=== PATIENT | female | born 1965 | race Caucasian/White ===

== ENCOUNTER → 2023-02-12 | Outpatient (CLI) | payer BC, SELFPAY ==
[2023-02-12 10:51] LABS: Microalbumin,Random Urine 7.8 mg/L (NO RANGE EST.)
[2023-02-12 10:55] LABS: Vitamin B12 808 pg/mL (211-911); Vitamin D,25 Hydroxy 24.3 ng/mL
[2023-02-12 11:08] LABS: PTHIN 1128.2 pg/mL (18.4-80.1)
[2023-02-12 11:20] LABS: T4 Free Direct 0.95 ng/dL (0.76-1.46); Thyroid Stim Hormone (TSH) 1.14 uIU/mL (0.358-3.74)
== END | disposition home or self-care (01) ==
LOC: MFPLAB 08:39
PROVIDERS: PCP Family Medicine; Visit Provider Family Medicine
DX: E83.52 Hypercalcemia (principal); F32.9 Major depressive disorder, single episode, unspecified; I10 Essential (primary) hypertension
CPT/HCPCS: 36415; 82043; 82306; 82570; 82607; 82746; 83970; 84439; 84443

== ENCOUNTER → 2023-02-18 | Outpatient (CLI) | payer BC, SELFPAY ==
--- NOTE | 2023-02-18 16:51 | US_ITS ---
STUDY: THYROID ULTRASOUND REASON FOR EXAM: Female, 57 years old. Elevated calcium and L anterior neck 1.5 cm mass above thyroid ti TECHNIQUE: Ultrasound evaluation of the thyroid was performed with real-time and static ye-scale imaging. COMPARISON: None. FINDINGS: RIGHT LOBE: The right lobe of the thyroid gland measures 4.8 x 2.0 x 2.0 cm. There is a homogeneous echotexture. There is a 4 x 4 by 4 mm small hypoechoic well-circumscribed structure. There is a small midline hypoechoic nodule measuring 4.3 x 2.5 mm. LEFT LOBE: The left lobe of the thyroid gland measures 5.2 x 1.9 x 1.5 cm. There is a homogeneous echotexture. There is a hypoechoic 5 x 4 x 3 mm cystic structure left ISTHMUS: The isthmus measures 1.6 mm . The regional lymph nodes are normal. The left neck soft tissues there is a 0.5 x 0.6 cm lymph node. There is a 1.1 x 0.3 cm lymph node. US/Thyroid IMPRESSION: Small benign-appearing small nodules following into a category of mildly suspicious. tI-RADS TR 3, recommend follow-up study in one year. Small benign-appearing Neck Soft Tissue lymph nodes. Mild thyromegaly. Electronically Signed: Jessica Robles MD at 5:11 EDT ,
== END | disposition home or self-care (01) ==
PROVIDERS: PCP Family Medicine; Referring Provider Family Medicine; Visit Provider Family Medicine
DX: R22.1 Localized swelling, mass and lump, neck (principal)
CPT/HCPCS: 76536

== ENCOUNTER → 2023-03-05 | Outpatient (CLI) | payer BC, SELFPAY ==
[2023-03-05 16:04] LABS: Vitamin D,25 Hydroxy 23.3 ng/mL
[2023-03-05 16:26] LABS: Calcium,Total 14.7 mg/dL (8.5-10.1)
== END | disposition home or self-care (01) ==
PROVIDERS: PCP Family Medicine; Referring Provider Surgery; Visit Provider Surgery
DX: R79.89 Other specified abnormal findings of blood chemistry (principal)
CPT/HCPCS: 36415; 82306; 82310; 83970

== ENCOUNTER 2023-03-07 11:30 | Outpatient (CLI) | payer BC, SELFPAY ==
[2023-03-07 11:40] VITALS: BP 141/84; PULSE 77; RESP 16; TEMP 36.6; O2SAT 96; BMI 30.4
[2023-03-07] MEDS: 0.9% NaCl Peripheral Flush Adult/Peds IV (12:06)
[2023-03-07] MEDS: 0.9% NaCl IVPB Med Flush (250 mL) 15 ML IV (12:06)
[2023-03-07] MEDS: Pamidronate Disodium 60 MG in 0.9% Normal Saline (500mL Bag) 500 ML 250 MG IV (12:07)
[2023-03-07 14:43] VITALS: BP 144/88; PULSE 66
== END 2023-03-07 11:31 | disposition home or self-care (01) ==
LOC: MEDOUTP 11:31
PROVIDERS: PCP Family Medicine; Referring Provider Internal Medicine Endocrinology, Diabetes & Metabolism; Visit Provider Internal Medicine Endocrinology, Diabetes & Metabolism
DX: E83.52 Hypercalcemia (principal)
CPT/HCPCS: 96365; 96366; J2430; J7040; J7050; A4216

== ENCOUNTER → 2023-03-13 | Outpatient (CLI) | payer BC, SELFPAY ==
[2023-03-13 18:10] LABS: ALB/GLOB Ratio 1.1 RATIO (0.9-2.4); AST(SGOT) 12 U/L (15-37); Alanine Aminotransfer ALT/SGPT 33 U/L (13-56); Alkaline Phosphatase 230 U/L (45-117); Anion Gap 4 (5-15); BUN 7 mg/dL (7-18); Calcium,Total 12.2 mg/dL (8.5-10.1); Chloride 110 mmol/L (98-107); EST Glomerular Filtration Rate 92 mL/min (>60); Est Glom Filt Rate - Afr Amer 111 mL/min (>60); Globulin 3.6 g/dL (2.2-4.2); Glucose 92 mg/dL (74-106); Potassium 3.7 mmol/L (3.5-5.1); Protein, Total 7.6 g/dL (6.4-8.2); Sodium Level 138 mmol/L (136-145)
== END | disposition home or self-care (01) ==
LOC: MTLAB 16:16
PROVIDERS: PCP Family Medicine; Referring Provider Internal Medicine Endocrinology, Diabetes & Metabolism; Visit Provider Internal Medicine Endocrinology, Diabetes & Metabolism
DX: E83.52 Hypercalcemia (principal); R79.89 Other specified abnormal findings of blood chemistry
CPT/HCPCS: 36415; 80053

== ENCOUNTER → 2023-03-26 | Outpatient (CLI) | payer BC, SELFPAY ==
--- NOTE | 2023-03-26 09:56 | NM_ITS ---
CLINICAL: 57-year-old female with history of elevation of the serum parathyroid hormone levels and hypercalcemia. 99m Tc SESTAMIBI DUAL PHASE PLANAR and SPECT-CT PARATHYROID SCINTIGRAPHY COMPARISON: Thyroid ultrasound report 02/18/2023 FINDINGS: Following the intravenous administration of 27.0 mCi of 99m Tc sestamibi, planar image acquisitions of the anterior neck at 15 minutes and 3.0 hours post radiopharmaceutical provision and SPECT-CT reconstructions obtained at 3.0 hours reveal: 1. Immediate static blood pool acquisitions demonstrate distribution of the radiopharmaceutical in the right-left thyroid colloid, most accentuated in the mid-inferior pole of the right thyroid parenchyma. 2. Delayed planar images depict persistent accentuated tracer uptake noted in the mid-inferior pole of the right thyroid bed corresponding to the blood pool changes. SPECT-CT of the anterior neck reveal confirmation of the planar projection findings. NM/Parathyroid SPECT w/ CONCUR CT IMPRESSION: 1. ABNORMAL 99m Tc SESTAMIBI PLANAR - SPECT PARATHYROID IMAGING DUAL PHASE EXAMINATION. 2. Facilitated uptake noted on delayed acquisitions and SPECT-CT reconstructions involving the right thyroid bed are most consistent with visualization of a parathyroid adenoma. Electronically Signed: Sy Vidal DO at 23:27 EDT ,
== END | disposition home or self-care (01) ==
LOC: NM 09:54
PROVIDERS: PCP Family Medicine; Referring Provider Surgery; Visit Provider Surgery
DX: E83.52 Hypercalcemia (principal); R79.89 Other specified abnormal findings of blood chemistry
CPT/HCPCS: 78072; A9500

== ENCOUNTER → 2023-03-28 | Outpatient (CLI) | payer BC, SELFPAY ==
--- NOTE | 2023-03-28 16:33 | US_ITS ---
EXAM: US RETROPERITONEAL LIMITED, RENAL CLINICAL INDICATION: elevated calcium and PTH TECHNIQUE: Limited grayscale and color Doppler sonographic evaluation of the retroperitoneum was performed. COMPARISON: No relevant prior studies available. FINDINGS: RIGHT KIDNEY: The right kidney measures 11.7 cm in length. There are multiple calyceal stones, the largest measuring 6 mm. There is mild hydronephrosis. LEFT KIDNEY: The left kidney measures 13 cm in length. There are multiple stones, the largest measuring 8 mm and there is mild hydronephrosis. No perinephric collection is demonstrated. BLADDER: Urinary bladder appears within normal limits. No significant urinary bladder wall thickening. Bilateral ureteral jets are visualized. US/Kidney and Bladder IMPRESSION: Bilateral nephrolithiasis and mild bilateral hydronephrosis. Consider CT for further evaluation. Electronically Signed: Angelo Mejia DO at 23:51 EDT ,
--- NOTE | 2023-03-28 16:36 | CT_ITS ---
INDICATION: elevated PTH -- hypercalcemia, 3-phase parathyroid protocol EXAMINATION: CT NECK WITH CONTRAST - CT Soft Tissue Neck W/ Contrast Injection TECHNIQUE: Helically acquired images were obtained of the neck following IV contrast. A radiation dose optimization technique was used for this scan. IV Contrast dosage and agent: RADIATION DOSAGE (If Supplied By Facility): CTDIvol = ( 7.97 ) mGy, DLP = ( 855.22 ) mGycm COMPARISON: Parathyroid SPECT with FINDINGS: NASOPHARYNX: Unremarkable. SUPRAHYOID NECK: Unremarkable oropharynx, oral cavity, parapharyngeal space, and retropharyngeal space. INFRAHYOID NECK: Unremarkable larynx, hypopharynx, and supraglottis. THYROID: No focal lesions. Parathyroid adenoma was evident on prior parathyroid study. The thyroid gland itself is normal in appearance. Posterior to the lower pole of the right lobe of the thyroid gland there is a nodule visualized measuring 1.5 cm transverse by 1.37 cm AP. This is seen on series 4 images 85 through 97. This likely represents the patient''s parathyroid adenoma. SALIVARY GLANDS: Unremarkable. LYMPH NODES: No cervical or supraclavicular lymphadenopathy. VASCULAR STRUCTURES: Unremarkable. VISUALIZED PORTIONS OF THE ORBITS, PARANASAL SINUSES, MASTOID AIR CELLS AND SKULL BASE: Unremarkable. BONES: Unremarkable. THORACIC INLET: Clear lung apices. CT/Soft Tissue Neck W/WO Contrast IMPRESSION: Nodule posterior to right lobe of thyroid gland 0.5 x 1.37 cm likely representing parathyroid adenoma. Electronically Signed: Hank Choi MD at 14:08 EDT ,
== END | disposition home or self-care (01) ==
LOC: US 16:32
PROVIDERS: PCP Family Medicine; Referring Provider Surgery; Visit Provider Surgery
DX: E83.52 Hypercalcemia (principal); R79.89 Other specified abnormal findings of blood chemistry
CPT/HCPCS: 70492; 76770; Q9967

== ENCOUNTER → 2023-04-22 | Outpatient (CLI) | payer BC, SELFPAY ==
--- NOTE | 2023-04-22 14:09 | BD_ITS ---
STUDY: DUAL ENERGY X-RAY ABSORPTIOMETRY / DXA REASON FOR EXAM: Female, 57 years old. Hypercalcemia -- please include bilateral radius if possible TECHNIQUE: Bone Mineral Density (BMD) measurements of lumbar spine and bilateral hips were obtained. COMPARISON: None. FINDINGS: Lumbar Spine (L1-L4): g/cm2 (0.817) / T-score (-1.8) / Z-score (-0.7) Findings are suggestive of osteopenia with a moderate fracture risk. Left Femur Total: g/cm2 (0.927) / T-score (-0.1) / Z-score (0.6) Left Femoral Neck: g/cm2 (0.761) / T-score (-0.8) / Z-score (0.3) Right Femur Total: g/cm2 (0.988) / T-score (0.4) / Z-score (1.1) Right Femoral Neck: g/cm2 (0.801) / T-score (-0.4) / Z-score (0.7) BD/Dexa Bone Density Study IMPRESSION: The patient is considered osteopenic as outlined below according to World Greg Organization (WHO) criteria with a moderate fracture risk. Reference Information: The T-score is the number of standard deviations above or below the standard which is normal for young adults at their peak bone mineral density. The World Health Organization (WHO) interprets the T-scores as follows: Above -1 Normal bone density Between -1 and -2.5 Osteopenia Equal to / or below -2.5 Osteoporosis As a practical clinical guideline, osteopenia may be graded as follows: Mild -1 through -1.5 Moderate -1.6 through -2.0 Severe -2.1 through -2.4 The Z-score is the number of standard deviations above or below age-matched controls. A Z-score of less than -1.5 would be considered abnormal. References: 1. NIH Osteoporosis and Related Bone Diseases www osteo.org 2. International Society for Clinical Densitometry www iscd.org 3. National Osteoporosis Foundation www nof.org Electronically Signed: Blu Woody MD at 13:51 EST ,
== END | disposition home or self-care (01) ==
LOC: OPBD 14:03
PROVIDERS: PCP Family Medicine; Referring Provider Surgery; Visit Provider Surgery
DX: E83.52 Hypercalcemia (principal); R79.89 Other specified abnormal findings of blood chemistry
CPT/HCPCS: 77080

== ENCOUNTER → 2023-05-06 | Outpatient (CLI) | payer BC, SELFPAY ==
--- NOTE | 2023-05-06 14:17 | CT_ITS ---
HISTORY: nephrolithiasis. TECHNIQUE: Helically acquired images were obtained of the abdomen and pelvis without oral or IV contrast. A radiation dose optimization technique was used for this scan. 529 images. COMPARISON: US 03/28/2023. FINDINGS: LOWER CHEST: 3 mm right lower lobe groundglass pulmonary nodule. BOWEL: Bowel including appendix nondilated. No focal pericolonic inflammatory change. PERITONEUM: No significant free fluid. LIVER: Unremarkable. GALLBLADDER/BILIARY TREE: 1.6 cm gallstone with a peripheral calcification. SPLEEN/PANCREAS/ADRENAL GLANDS: Nonenlarged. KIDNEYS AND URETERS: No nephrolithiasis or obstructing ureteral calculus. VESSELS: No abdominal aortic aneurysm. PELVIC ORGANS: Unremarkable. ABDOMINAL WALL: Tiny fat-containing umbilical hernia. BONES: Mild degenerative change and scoliosis. CT/Abdomen/Pelvis without Cont IMPRESSION: Cholelithiasis. Negative examination for renal stone. Electronically Signed: Shanta Gómez MD at 15:03 EST ,
== END | disposition home or self-care (01) ==
LOC: CT 14:17
PROVIDERS: PCP Family Medicine; Referring Provider Surgery; Visit Provider Surgery
DX: N20.0 Calculus of kidney (principal)
CPT/HCPCS: 74176

== ENCOUNTER 2023-05-15 13:00 | Observation (INO) | payer BC, SELFPAY ==
[2023-05-15] VITALS (12 sets, daily range): BP systolic 120–153; BP diastolic 79–93; PULSE 85–113; RESP 16–18; TEMP 36.2–37.7; O2SAT 92–98; BMI 30.2; BMI 31.8
--- NOTE | 2023-05-15 | PARA_PTH ---
PATIENT: ANAYA VAZQUEZ LOC: NC3 U#:[id number] AGE/SX: 57/F ROOM: [facility] [place]05/15/[address]: Dr. John Richardson MD : 1965 BED: 1 DIS: 05/16/2023 SPEC #: [id number] RECD: 05/15/23 08:37 STATUS: DICK REMalvin #: [id number] LUC: 05/15/23 00:[address]: John Richardson DEPT: SURGICAL PATHOLOGY RECD BY: Nichole Lay ENTERED: 05/15/23 09:30 SP TYPE: PARATHY OTHR DR: Dr. Pierce Brewer MD Tissues: A - Parathyroid B - Parathyroid C - Thyroid gland, NOS D - Parathyroid E - Parathyroid F - Neck, NOS G - Parathyroid H - Parathyroid Procedures: Frozen Section (charge) Surgery Specimen Level IV HEADER OPERATION: Subtotal thyroidectomy with four parathyroid gland exploration PRE-OP DIAGNOSIS: Primary hyperparathyroidism TISSUE SUBMITTED: A - Parathyroid tissue, FS, B - Right superior parathyroid, FS, C - Thyroid tissue, FS, D - Left inferior parathyroid tissue, FS, E - Left perithyroidal tissue, FS, F - Right neck fat, FS, G - Right inferior parathyroid, FS, H - Left superior parathyroid tissue, FS FROZEN SECTION DIAGNOSIS A. Parathyroid tissue, biopsy: Parathyroid tissue present. B. Right superior parathyroid, excision: Hyperplastic parathyroid tissue. C. Thyroid tissue, biopsy: Parathyroid tissue. D. Left inferior parathyroid tissue, biopsy: Parathyroid tissue. E. Left perithyroidal tissue, biopsy: Benign lymphoid tissue. F. Right neck fat, biopsy: Benign fibrofatty tissue. G. Right inferior parathyroid, biopsy: Parathyroid tissue with hyperplasia. H. Left superior parathyroid tissue, biopsy: Hyperplastic parathyroid tissue. AM:angélica 05/15/2023 MICROSCOPIC DIAGNOSIS A. Parathyroid tissue, biopsy: Benign parathyroid tissue present. B. Right superior parathyroid, excision: Hyperplastic parathyroid gland. C. Thyroid tissue, biopsy: Benign parathyroid tissue present. D. Left inferior parathyroid tissue, biopsy: Benign parathyroid tissue. E. Left perithyroidal tissue, biopsy: Benign lymph node tissue. F. Right neck fat, biopsy: Benign fibrofatty tissue. G. Right inferior parathyroid, biopsy: Hyperplastic parathyroid tissue present. H. Left superior parathyroid tissue, biopsy: Hyperplastic parathyroid tissue present. AM:angélica 05/16/2023 COMMENT The right superior parathyroid gland measures 3.7 cm in greatest dimension and weighs to 2.8 gm. The right inferior parathyroid gland and the left superior parathyroid gland are above the upper limits for size. The overall findings in this case with hyperplasia of three parathyroid glands is consistent with primary hyperparathyroidism. Clinical correlation is suggested. MICROSCOPIC DESCRIPTION Slides are reviewed. GROSS DESCRIPTION A - Received fresh for frozen section consultation labeled with the patient's name is a specimen designated parathyroid tissue. The specimen consists of an irregular fragment of red-rivera soft tissue measuring 0.5 x 0.1 x 0.1 cm. The specimen is totally submitted in one block for frozen section consultation. B - Received fresh for frozen section consultation labeled with the patient's name is a specimen designated right superior parathyroid. The specimen consists of an irregular fragment of red-rivera soft tissue measuring 3.7 x 1.7 x 0.8 cm and weighs 2.8 gm. A fraud representative portion is submitted in one block for frozen section consultation. The remainder of the tissue is serially sectioned and totally submitted two cassettes, 2 & 3. C - Received fresh for frozen section consultation labeled with the patient's name is a specimen designated thyroid tissue. The specimen consists of an irregular fragment of red-rivera soft tissue measuring 0.5 x 0.2 x 0.2 cm. The specimen is totally submitted in one block for frozen section consultation. D - Received fresh for frozen section consultation labeled with the patient's name is a specimen designated left inferior parathyroid. The specimen consists of an irregular fragment of pink-rivera soft tissue measuring 0.5 x 0.1 x 0.1 cm. The specimen is totally submitted in one block for frozen section consultation. E - Received fresh for frozen section consultation labeled with the patient's name is a specimen designated left soft tissue. The specimen consists of an irregular fragment of yellow soft tissue measuring 0.8 x 0.5 x 0.2 cm. The specimen is totally submitted in one block for frozen section consultation. F - Received fresh for frozen section consultation labeled with the patient's name is a specimen designated right neck fat. The specimen consists of a single irregular fragment of yellow fatty tissue measuring 1.1 x 0.7 x 0.5 cm. The specimen is totally submitted in one block for frozen section consultation. G - Received fresh for frozen section consultation labeled with the patient's name is a specimen designated right inferior parathyroid. The specimen consists of an irregular fragment of red-rivera soft tissue measuring 1.2 x 0.5 x 0.2 cm and weighs 0.2 gm. The specimen is totally submitted in one block for frozen section consultation. H - Received fresh for frozen section consultation labeled with the patient's name is a specimen designated left superior parathyroid tissue. The specimen consists of an irregular fragment of red-rivera soft tissue measuring 1.2 x 0.8 x 0.3 cm and weighs 0.3 gm. The specimen is totally submitted in one block for frozen section consultation. / AM:angélica 05/15/2023 TC:1 CPT: 03980 x8, [id number] x8
[2023-05-15] MEDS: Lactated Ringers 1,000 ML 15 ML IV (06:45)
--- NOTE | 2023-05-15 07:02 | HP.PCM_ITS ---
History and Physical Date of Admission: 05/15/23 Date of Service: 04/22/23 MR#: [id number] Acct: [id number] Name: ANAYA VAZQUEZ Rep #: [id number] : 1965 Provider: Dr. 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 Is patient in pain?: Yes (generalized) Allergies amoxicillin Allergy (Severe, Verified 04/22/23 08:47) Swelling Medications Lactobacillus rhamnosus GG 10 billion cell capsule (Culturelle) 1 cap PO DAILY 03/05/23 [History Confirmed 04/22/23] cholecalciferol (vitamin D3) 25 mcg (1,000 unit) capsule 25 mcg PO DAILY 03/05/23 [History Confirmed 04/22/23] [id number] 8 mg-folic 400 mcg-K 50 mcg-lutein 300 mcg tablet (Centrum Silver Women) 1 tab PO DAILY 03/05/23 [History Confirmed 04/22/23] ramipril 2.5 mg capsule 2.5 mg PO DAILY 03/05/23 [History Confirmed 04/22/23] pamidronate 60 mg/10 mL (6 mg/mL) intravenous solution 60 mg (10 mL) .Route ONCE #10 mL 03/06/23 [Rx Confirmed 04/22/23] PFSH Medical History Elevated parathyroid hormone Family History Mother Heart disease Hypertension Thyroid disorder DiabetesGrandmother Thyroid disorderAunt Thyroid disorder Social History Smoking Status: Never smoker alcohol intake: current alcohol intake frequency: holidays/special occasions only substance use type: does not use HPI HPI HPI: Patient is a 57-year-old female who presents for evaluation of left neck swelling and hypercalcemia. They are referred from Dr. Brewer. She follows up from an initial consultation visit 03/05/2023. She reports that she has a habit of downplaying symptoms and believes she did this prior to our visitation as she is recognized more symptoms since our consultation visit. Particularly, she notes that October was difficult due to rather diffuse skeletal type pains and she specifically notes discomfort in her knees and finger joints. She shares that the pain became so bad in her knees that she almost fell and that her is now carrying a laundry basket for her. She also reports more tiredness and states that it is out of character for her to nap, but over the last weekend she had both a 3-hour and a 2-hour nap. She is frustrated because she wishes to have more energy for the many obligations that face her. She expresses a desire to simply have this issue dealt with definitively. In the interim since our last visit she has completed SPECT-CT on 03/26/2023, renal ultrasound on 03/28/[address] of the neck also on 03/28/2023. Below is recapitulated from patient's prior visit for ease of review: Patient has no history of prior bone density imaging admits that she rarely sees a physician. Patient has no history of pathologic fractures. Patient has no history of kidney stones. Patient has no history of frequent dental caries or chipped teeth. Patient has no history of brittle fingernails. Patient has a sporadic history of GERD which she states presently causes troubles for her but once a month. Patient does have a history of hypertension with recent exacerbation requiring addition of VELMA inhibitor. Additional symptoms include: Some occasional mind wandering, fatigue, chronic constipation, and sore joints of her hands. Pertinent negatives include no significant mood disturbances aside from some grieving after the loss of her brother and niece in a tragic car accident 2021. Additional pertinent negatives include no frequent dry cough, no swallowing difficulties, no shortness of breath, and no muscle weakness. Patient has no history of prior radiation exposure apart from medical imaging. Patient has a family history of other endocrinopathies including thyroid disorder not otherwise specified in her mother and maternal grandmother. She notes that her mother was very private about her health issues and was not discussed much while she was living. Patient does not have a diet high in dairy. Patient's current labs are calcium: 15.6 mg/dL 02/11/2023 (patient's last values were normal but were from the year 2013), Vitamin D: 24.3 ng/mL 02/11/2023, Ionized calcium: [Value]mg/dL [date], PTH: 1128.2 pg/mL 02/11/2023 (this is a single value, Phosphorus: [Value] [date] Current medications include: Vitamin D supplementation and prior multivitamin (now stopped) Imaging has been done thyroid ultrasound 02/18/2023 and showed no evidence of parathyroid adenomas but the right thyroid lobe measured 4.8 x 2.0 x 2.0 cm. Two 4 mm nodules were noted within this lobe. Left thyroid lobe measured 5.2 x 1.9 x 1.5 cm. A 5 mm nodule was noted within this lobe. Patient, as above, has not had DEXA imaging [on date] [which showed: Imaging fin dings]. Patient has not had renal imaging [on date] [which showed: Imaging findings]. ROS General General: No weight change, appetite, fatigue, colon cancer, breast cancer or weakness HEENT HEENT: No difficulty swallowing, eye injury, eye surgery, swollen glands or hoarseness Endo Endocrine: No thyroid disease, diabetes mellitus, thyroid cancer, Hair loss, heat intolerance or cold intolerance Skin Skin: No rash or changing moles Musc Musculoskeletal: No back problems, arthritis, rheumatoid arthritis, gout or joint pain Cardio Cardiovascular: Yes high blood pressure; No murmur, pacemaker, heart disease, atrial fibrillation, heart attack, heart stent, palpitations, shortness of breat with exertion or chest pain Psych Psychiatric: No depression, anxiety or hearing voices Resp Respiratory: No shortness of breath, No sleep apnea, No cough, No COPD, No asthma, No emphysema and No wheezing Gastro Gastrointestinal: No abdominal pain, No nausea or vomiting, No diarrhea, Yes constipation, No blood in stool, No acid reflux, No hemorrhoids, No ulcers, No gallbladder problem and No black,tarry stools Wilner Hematologic: No blood thinners, No blood disorders, No bleeding, No anemia and No blood clots Neuro Neurologic: No system reviewed and no additional complaints, except as documented, No as per HPI, No abnormal gait, No abnormal hearing, No abnormal movements, No abnormal speech, No behavioral changes, No burning sensations, No confusion, No convulsions, No disequilibrium, No dizziness, No localized weakness, No frequent falls, No headache(s), No lack of coordination, No loss of vision, No memory loss, Yes numbness, No other visual disturbances, No radicular pain, No restless legs, No sensory deficit, No syncope, Yes tingling, No tremor(s), No weakness and No other Exam Const General: cooperative and anxious Orientation: alert, awake and oriented x3 Neck Other: No lymphadenopathy appreciated. Nontender with palpation. Resp Effort & Inspection: normal respiratory effort Assessment and Plan Assessment and Plan (1) Primary hyperparathyroidism: Status: Acute Comment: This is a 57-year-old female who initially consulted for recent finding of hypercalcemia and elevated parathormone. She now appears to have primary hyperparathyroidism as confirmed with repeat lab testing. Given the severely elevated levels of both her calcium and parathyroid hormone I have counseled her that she is at risk for possible parathyroid carcinoma, but reminded her that the incidence of this diagnosis is very low in the general population (representing less than 1% of all primary hyperparathyroidism). Our interval since her consultation visit has been productive and she had a sestamibi scan with SPECT-CT that localized to the right inferior position. Renal ultrasound demonstrated bilateral nephrolithiasis and soft tissue CT of the neck confirms that the cyst may be with an apparent lesion in the right inferior neck. Notably, radiology does not comment on any invasion of the surrounding anatomy. Patient also does not have any evidence of lymphadenopathy on exam today. With these latter observations, it is my hope that she simply has a large and active parathyroid adenoma. Given her reports of increased symptoms and the lingering possibility of a carcinoma, it is my recommendation that we proceed for operative intervention at first mutually available date. Yet in the meantime, I would like to obtain baseline bone density testing. I have shared with patient the details of the planned operation to include parathyroidectomy, intraoperative nerve and PTH monitoring, and possible right thyroid lobectomy/en bloc resection of involved structures if there is concern for invasion. Hand drawings were made of the relevant anatomy to better illustrate these risks. Given the possibility of hungry bone syndrome, I would like patient to plan for an overnight observational stay following the operation. Plan: Parathyroidectomy with intraoperative nerve and PTH monitoring. Possible right thyroid lobectomy/en bloc resection of involved anatomy/ all other procedures as indicated. Procedure to be planned as a observational stay postoperatively (2) Hypercalcemia: Status: Acute Comment: Patient is a 57-year-old female who is presenting for incidentally noted hypercalcemia with reflex elevated PTH from recent routine lab testing. Laboratories confirmed with repeat testing. Patient has met with endocrinology and underwent pamidronate infusion. Patient requires surgical intervention for definitive management Plan: See surgical plans above (3) Thyroid nodule: Status: Acute Comment: No intervention recommended based on the subcentimeter nodules without suspicious features (4) Elevated parathyroid hormone: Status: Acute Comment: Severely elevated; confirmed with repeat laboratories. Given significant elevation this places patient at increased risk for parathyroid carcinoma but overall picture is consistent with diagnosis of primary hyperparathyroidism (5) Bilateral nephrolithiasis: Status: Acute Comment: Incidental finding for screening with primary hyperparathyroidism. Patient reports more central back pain and denies CVA tenderness with exam. I have offered to perform CT imaging to investigate further, however, it is her wish to deal with this issue postoperatively. Still, she is given red flag warnings that should prompt her to be evaluated in the emergency department should she experience them. Plan: Patient wishes to defer further imaging/referral for postoperatively. However, she is cautioned on signs and symptoms of acute obstructive nephrolithiasis/uropathy. Orders: Orders Dexa Bone Density Study Today E83.52 - Hypercalcemia, R79.89 - Other specified abnormal findings of blood chemistry I have examined the patient and the H&P has been reviewed. There are no clinical changes since date of exam. Results of interval testing were reviewed with p atient via telephone yesterday. She denies any further questions. Therefore the high-level details of the procedure were reviewed with patient today and again she denies any further questions. A baseline PTH has been obtained peripherally and submitted to the lab. Written consents were confirmed. We will therefore proceed to the operating room for parathyroidectomy with intraoperative nerve and PTH monitoring. Patient is also consented for possible right thyroid lobectomy up to including en bloc resection of all involved anatomy should there be a strong suspicion for malignancy. To this latter point we did discuss the possible morbidity of the procedure if such anatomy was sacrificed in the name of oncologic completeness and patient did provide her consent both verbally and in written form.
[2023-05-15 07:09] LABS: PTHIN 1147.1 pg/mL (18.4-80.1)
[2023-05-15 09:43] LABS: PTHIN 144.6 pg/mL (18.4-80.1)
[2023-05-15 09:49] LABS: PTHIN 144.9 pg/mL (18.4-80.1)
[2023-05-15 09:52] LABS: PTHIN 2533.9 pg/mL (18.4-80.1)
[2023-05-15 10:19] LABS: PTHIN 284.5 pg/mL (18.4-80.1)
[2023-05-15 11:05] LABS: PTHIN 126.6 pg/mL (18.4-80.1)
[2023-05-15 11:42] LABS: PTHIN 377.2 pg/mL (18.4-80.1)
[2023-05-15 12:22] LABS: PTHIN 43.2 pg/mL (18.4-80.1)
[2023-05-15] MEDS: Bupivacaine 0.25% 30 ML Vial (12:44)
[2023-05-15 12:58] LABS: PTHIN 118.4 pg/mL (18.4-80.1)
--- NOTE | 2023-05-15 13:03 | OP.PCM_ITS ---
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 Modestly enlarged right inferior parathyroid gland that was identified via frozen section ? Markedly enlarged right superior parathyroid gland found just deep to the trachea against the vertebrae but not invading any of the surrounding anatomy ? Modestly enlarged left superior and left inferior parathyroids (both confirmed and identity via frozen section) ? Pedicled lymph node in the perithyroidal space on the left which was confirmed via frozen section as lymphoid tissue ? Lobulated, subcutaneous tissue on the right just medial to the carotid confirmed as neither thyroid or parathyroid Surgeon: John Richardson non destructive testing engineer: Ricco Leon non destructive testing engineer: Mayi Swain Type of Anesthesia: General/Supplemental Anesthesiologist: Pierce Lynn Specimen's removed: 1. Rule out right inferior parathyroid (frozen section confirmed) 2. Right superior parathyroid (frozen section confirmed) 3. Soft tissue rule out superior parathyroid (frozen section confirmed) 4. Left inferior parathyroid tissue (frozen section confirmed 5. Left neck soft tissue (frozen section suggestive lymph tissue) 6. Right neck fat (frozen section confirms subcutaneous tissue) Estimated Blood Loss (mL): 10 Description of Procedure: After appropriate identification in the preoperative holding area the patient was brought to the operating room where she was positioned supine on the operating room table. There she was induced with general endotracheal anesthetic. Of note, a preoperative PTH had been obtained and was reported as 1147. Patient was then intubated using a Nims tube and glide a scope to ensure coaptation between the vocal cords and the Nims tube electrodes. A resistance check confirmed appropriate function of the tube after the electrodes were properly connected to the monitoring box. Patient was then positioned in cervical extension, but adequately supporting the occiput. She was prepped and draped in the usual sterile fashion and a formal timeout followed to confirm patient and the procedure to be performed. A local block was produced with infiltration of local anesthetic and a 4cm transverse incision was made. This was deepened with the use of electrocautery through the platysma and subplatysmal flaps were raised superiorly and inferiorly. Ultimately the strap muscles were exposed and were divided along their raphe with electrocautery. I then used blunt dissection to free the sternothyroid muscle from the thyroid capsule of the right thyroid lobe deeply. The strap muscles were from 1 another as I proceeded with dissection laterally towards the patient's right internal jugular vein. Once this structure was sufficiently exposed I obtained a baseline central vein PTH level. This ultimately returned at 4613. For the interim I returned to the patient's neck and elevated the inferior pole of the right thyroid lobe. Several areas of fullness in the soft tissue of the right thyrothymic ligament were explored but ultimately I only encountered a rather normally-appearing parathyroid in the inferior position. To confirm this identity a small biopsy was obtained and submitted for frozen section after placement of a titanium clip. Returning to the neck I was able to identify the right recurrent laryngeal nerve and obtain a signal from our NIMS monitor but there were no immediately apparent candidates for our preoperatively identified adenoma. On reviewing patient's CT imaging I decided our search had been a li ttle low for where the suspected lesion might be expected especially given the repositioning of patient with her head extended. Therefore, exploring higher in the neck I was able to identify a subtle soft tissue swelling that arose out of the soft tissue deep to the trachea. This area was further bluntly explored- taking the recurrent laryngeal nerve into account- and I was able to discern a very large gland lying parallel but deep to the tracheoesophageal groove. Careful/tedious blunt dissection was employed to free the structure from its surrounding soft tissue attachments it was then circumferentially freed so that it remains suspended by its vascular pole only. At this point the gland was amputated free. This specimen was passed off the field for frozen section confirmation. (Later, pathology telephoned the room to notify us that indeed this represented a large parathyroid). As we awaited this result, I irrigated the surgical cavity with sterile water examined for hemostasis. Right internal jugular ex vivo blood draws were made with a 22-gauge needle and syringe at 5, 10, and 15 minutes and returned 2533.9, 144.6, and 144.9. There was a delay in the reporting of these values and I became suspicious for additional pathology when they failed to drop further so an additional level was obtained and this returned 284.5 despite no significant dissection about the remaining parathyroid inferiorly. With this rise I began exploring the left side of the neck and obtained a baseline value, centrally, after exposing that internal jugular vein to ultimately get a value of 126.6. Exploration for parathyroid glands first revealed a fatty lymph node (later confirmed as such by frozen section) and two modestly-enlarged parathyroid glands in the superior and inferior positions (later confirmed with frozen section). Once all 4 glands were identified and I was able to exclude a case of double adenoma I tried to obtain another central PTH level suspecting possible delayed fall in PTH. Yet this value came back higher (377.2) than the previous values and seemed to suggest lateralization favoring the right side as the primary contributor to patient's persistently elevated PTH. With this result I returned to the right neck to assess for completeness of the resection of the initial gland and removed some bulbous but fatty tissue and submitted this for frozen section which was ultimately confirmed as fatty tissue by pathology. Satisfied with completeness of the resection of the right superior gland, I removed the right inferior parathyroid gland and, interestingly, heard from pathology that they were able to declare it represented a hyperplastic gland as well (weighing 200mg). On hearing this declaration I concluded that patient actually suffered from parathyroid hyperplasia because I had already grossly concluded that the left superior parathyroid was larger than the right inferior gland I'd just submitted. With this diagnosis, I proceeded with performing a subtotal parathyroidectomy and removed the left superior gland as well. While on that side of the dissection I also replaced our biopsy clip on the left inferior gland- which had become loose- and otherwise was conscientious about trying to avoid any devascularization to this remaining gland. Determined this represented the extent of my intervention, I obtained a new central PTH from the right IJ that returned 43.2. Then I performed closure of the neck in layers. The strap muscles were run with a 3-0 Vicryl suture to reapproximate the raphe, but a gap was left in the inferior most portion of the strap muscles. Then the platysmal layer was reapproximated with interrupted 3-0 Vicryl. Additional local anesthetic was instilled. The skin was closed using a running 4-0 Monocryl in a subcuticular fashion. During this closure I received additional notification from pathology that the third parathyroid gland was also hyperplastic in appearance and had a weight of 300 mg. Steri-Strips and Telfa OpSite was applied as a dressing. Patient was then awoken from general anesthetic and taken to PACU for ongoing recovery. Complications None Admit VTE Documentation VTE Mechan Device Prophylaxis: SCD's Procedures Endocrine CF Procedures [id number]: Other Procedure See Report (cpt [id number])
[2023-05-15 13:52] LABS: PTHIN 22.3 pg/mL (18.4-80.1)
[2023-05-15] MEDS: Calcium Carb/Vitamin D 1 TABLET Tablet 2 TABLET PO (17:04)
[2023-05-15] MEDS: 0.9% Normal Saline (1000mL) 1,000 ML 125 ML IV (21:12)
[2023-05-15] MEDS: BENZOCAINE/MENTHOL 1 LOZENGE MUCOUS MEM (21:17)
[2023-05-15] MEDS: Acetaminophen 500 MG Tablet PO (23:27)
[2023-05-16 03:26] VITALS: BP 116/80; PULSE 80; RESP 16; TEMP 36.6; O2SAT 99
[2023-05-16] MEDS: 0.9% Normal Saline (1000mL) 1,000 ML 125 ML IV (04:40)
[2023-05-16 06:54] VITALS: BP 127/88; PULSE 73; RESP 16; TEMP 36.3; O2SAT 100
[2023-05-16] MEDS: Acetaminophen 500 MG Tablet PO (06:58)
--- NOTE | 2023-05-16 07:25 | DCINST_ITS ---
Discharge Instructions Diet Discharge Diet: No restrictions (However recommend a liquid to soft diet initially postoperatively) Activity Discharge Activity: May Not Drive (While it remains difficult to check blind spots quickly) May shower in (days): 1 Ice area for (Minutes): 20 Lifting Restrictions: No lifting greater than 15 pounds for 2 weeks after surgery Dressing / Incision Call your doctor if your incision/area has: Continuous Slow Oozing, Sudden Increased Bleeding, Increased Pain/ Swelling, Increased Redness and Swelling at the incision site Call your doctor if you observe: Numbness or Tingling Remove Dressing in: 2 days (Please leave Steri-Strips intact until they fall off spontaneously or are taken off at your follow-up visit) Cleanse incision/area with: Soap & Water Follow Up Care Please Follow Up With: John Richardson MD When: 7-10 days postop Test Results: Test results from this visit will be discussed in further detail at your follow- up appointment, if applicable. Discharge Plan Admission Admit Date/Time: 05/15/23 13:00 Primary Reason for Your Visit: Hyperparathyroidism Attending Provider: John Richardson Primary Care Provider: Pierce Brewer Discharge Orders/Prescriptions Prescriptions: New calcitriol 0.25 mcg Capsule 0.25 mcg PO DAILY 30 Days Qty: 30 0RF calcium carbonate-vitamin D3 [Oyster Shell Calcium-Vit D3] 500 mg-5 mcg (200 unit) Tablet 2 tab PO TIDCM 30 Days Qty: 180 1RF Rx Instructions: Please take 1 tab at breakfast and lunch but 2 tabs with dinner. Take calcitriol with first tab of the day. Continued ramipril 2.5 mg capsule 2.5 mg PO DINNER Centrum Silver Women 8 mg iron-400 mcg-50 mcg tablet 1 tab PO DAILY Hold Instructions: Ordered Culturelle 10 billion cell capsule 1 cap PO DAILY Discontinued cholecalciferol (vitamin D3) 25 mcg (1,000 unit) capsule 25 mcg PO DAILY Referrals / Follow Up: Pierce Brewer MD [Primary Care Provider] - Disposition Disposition (needs filled in before D/C Order can be placed): Home, Self Care
[2023-05-16 07:39] LABS: Anion Gap 5 (5-15); BUN 17 mg/dL (7-18); BUN/Creat Ratio 16.5 RATIO (10-20); Chloride 112 mmol/L (98-107); Creatinine, Serum 1.03 mg/dL (0.55-1.02); EST Glomerular Filtration Rate 59 mL/min (>60); Est Glom Filt Rate - Afr Amer 71 mL/min (>60); Estimated Creatinine Clearance 70.38 ml/min; Glucose 91 mg/dL (74-106); Potassium 3.7 mmol/L (3.5-5.1); Sodium Level 140 mmol/L (136-145)
[2023-05-16 08:21] LABS: PTHIN < 6.3 pg/mL (18.4-80.1)
[2023-05-16] MEDS: Calcium Carb/Vitamin D 1 TABLET Tablet 2 TABLET PO (09:45)
[2023-05-16 09:56] VITALS: BP 123/79; PULSE 83; RESP 16; TEMP 36.6; O2SAT 100
--- NOTE | 2023-05-16 10:16 | DS.PCM_ITS ---
Providers Date of Admission: 05/15/23 Primary Care Physician: Dr. Pierce Brewer MD Reason For Visit: Parathyroidectomy with IONM & PTH m Medications at Discharge Home Medications Lactobacillus rhamnosus GG 10 billion cell capsule (Culturelle) 1 cap PO DAILY 03/05/23 [id number] 8 mg-folic 400 mcg-K 50 mcg-lutein 300 mcg tablet (Centrum Silver Women) 1 tab PO DAILY 03/05/23 ramipril 2.5 mg capsule 2.5 mg PO DINNER 03/05/23 calcitriol 0.25 mcg capsule 0.25 mcg PO DAILY 1 month #30 caps 05/16/23 calcium carbonate 500 mg-vitamin D3 5 mcg (200 unit) tablet (Oyster Shell Calcium-Vitamin D3) 2 tab PO TIDCM 1 month #180 tabs 05/16/23 Hospital Course Operations - (subtotal parathyroidectomy with intraoperative PTH and nerve monitoring) Summary of Care Provided Hospital Course: Patient is a 57 yo F who underwent subtotal parathyroidectomy after her PTH failed to fully correct with removal of a dominant 3 g parathyroid lesion. Postoperatively she was admitted for monitoring of her calcium and PTH. Initial postop PTH was 22 but fell to <6 by AM of postoperative day 1. Simultaneously her ca was 10. Thus she remained asymptomatic from he hypoparathyroidism and upon noting her AM labs her Ca was adjusted to lower her overall level while facilitating better absorption with the addition of calcitriol. The pharmaco logic changes were discussed with patient and upon her declaring her comfort with the new changes she was granted discharge to home with follow up expected in next 2 weeks as an outpatient. Physical Exam HEENT normocephalic Neck Neck Narrative: operative dressing c/d/i. soft/supple with palpation but mildly tender. Resp normal respiratory effort Weight / BMI Weight Weight: 234 lb 5.622 oz Body Mass Index (BMI) 31.8 ABG / Lab / Microbiology Data 05/16/23 06:23 Laboratory: Laboratory Results - last 24 hr 05/15/23 09:56: PTH Intact 284.5 H 05/15/23 10:40: PTH Intact 126.6 H 05/15/23 11:11: PTH Intact 377.2 H 05/15/23 11:59: PTH Intact 43.2 05/15/23 12:31: PTH Intact 118.4 H 05/15/23 13:15: PTH Intact 22.3 12/01/23 06:23: Sodium 140, Potassium 3.7, Chloride 112 H, Carbon Dioxide 23.0, Anion Gap 5, BUN 17, Creatinine 1.03 H, Estim Creat Clear Calc 70.38, Est GFR (MDRD) Af Amer 71, Est GFR (MDRD) Non-Af 59 L, BUN/Creatinine Ratio 16.5, Glucose 91, Calcium 10.0, PTH Intact < 6.3 L D/C Instructions Discharge Diet: No restrictions (However recommend a liquid to soft diet initially postoperatively) May shower in (days): 1 Ice area for (Minutes): 20 Call your doctor if your incision/area has: Continuous Slow Oozing, Sudden Increased Bleeding, Increased Pain/ Swelling, Increased Redness and Swelling at the incision site Call your doctor if you observe: Numbness or Tingling Cleanse incision/area with: Soap & Water Please Follow Up With: John Richardson MD When: 7-10 days postop Meaningful Use Info Meaningful Use Diagnoses (Choose all that apply): None applicable Discharge Plan Admission Admit Date/Time: 05/15/23 13:00 Primary Reason for Your Visit: Hyperparathyroidism Attending Provider: John Richardson Primary Care Provider: Pierce Brewer Discharge Orders/Prescriptions Prescriptions: New calcitriol 0.25 mcg Capsule 0.25 mcg PO DAILY 30 Days Qty: 30 0RF calcium carbonate-vitamin D3 [Oyster Shell Calcium-Vit D3] 500 mg-5 mcg (200 unit) Tablet 2 tab PO TIDCM 30 Days Qty: 180 1RF Rx Instructions: Please take 1 tab at breakfast and lunch but 2 tabs with dinner. Take calcitriol with first tab of the day. Continued ramipril 2.5 mg capsule 2.5 mg PO DINNER Centrum Silver Women 8 mg iron-400 mcg-50 mcg tablet 1 tab PO DAILY Hold Instructions: Ordered Culturelle 10 billion cell capsule 1 cap PO DAILY Discontinued cholecalciferol (vitamin D3) 25 mcg (1,000 unit) capsule 25 mcg PO DAILY Referrals / Follow Up: Pierce Brewer MD [Primary Care Provider] - Disposition Disposition (needs filled in before D/C Order can be placed): Home, Self Care Charges/Coding Visit Charges Inpatient E&M: 69636 Disch Hosp
--- NOTE | 2023-05-16 10:50 | PHA.DC.MC.R ---
Pharmacy [facility] has performed discharge medication reconciliation and counseling for this patient. The patient's discharge medication list was reviewed for discrepancies and discrepancies were resolved. The patient was counseled on the following discharge medications and changes in medications for homegoing were reviewed. The Reason for Use, instructions for use, and potential side effects were reviewed for all new medications. The patient's questions regarding all of their medications were answered. 1. Calcitriol 0.25 mg PO daily 2. Calcium carbonate with vitamin D, 2 tabs PO BID The patient was able to verbally demonstrate an understanding of their discharge medications. Medications at Discharge Home Medications Lactobacillus rhamnosus GG 10 billion cell capsule (Culturelle) 1 cap PO DAILY 03/05/23 [id number] 8 mg-folic 400 mcg-K 50 mcg-lutein 300 mcg tablet (Centrum Silver Women) 1 tab PO DAILY 03/05/23 ramipril 2.5 mg capsule 2.5 mg PO DINNER 03/05/23 calcitriol 0.25 mcg capsule 0.25 mcg PO DAILY 1 month #30 caps 05/16/23 calcium carbonate 500 mg-vitamin D3 5 mcg (200 unit) tablet (Oyster Shell Calcium-Vitamin D3) 2 tab PO TIDCM 1 month #180 tabs 05/16/23
[2023-05-16] MEDS: Calcitriol 0.25 MCG Capsule PO (11:24)
== END 2023-05-16 12:14 | disposition home or self-care (01) ==
LOC: SDC 14:46 → MS3 14:46
PROVIDERS: Admitting Provider Surgery; PCP Family Medicine; Referring Provider Surgery; Visit Provider Surgery
PROC: (CPT 60500; principal; 2023-05-15 07:15)
DX: E21.0 Primary hyperparathyroidism (principal); I10 Essential (primary) hypertension; Z79.899 Other long term (current) drug therapy; E83.52 Hypercalcemia; E04.1 Nontoxic single thyroid nodule; R79.89 Other specified abnormal findings of blood chemistry; E78.00 Pure hypercholesterolemia, unspecified; E07.9 Disorder of thyroid, unspecified
CPT/HCPCS: 60500; 00320; 36415; 80048; 83970; 88305; 88331; 93005; 96360; 96361; 99221; A4648; J7030; J7120; G0378; J2405; J3490

== ENCOUNTER → 2023-05-21 | Outpatient (CLI) | payer BC, SELFPAY ==
[2023-05-21 14:34] LABS: Calcium,Total 9.7 mg/dL (8.5-10.1)
[2023-05-21 14:40] LABS: PTHIN 12.2 pg/mL (18.4-80.1)
== END | disposition home or self-care (01) ==
PROVIDERS: PCP Family Medicine; Referring Provider Surgery; Visit Provider Surgery
DX: E89.2 Postprocedural hypoparathyroidism (principal)
CPT/HCPCS: 36415; 82310; 83970

== ENCOUNTER → 2023-05-30 | Outpatient (CLI) | payer BC, SELFPAY ==
[2023-05-30 11:26] LABS: Calcium,Total 9.2 mg/dL (8.5-10.1)
[2023-05-30 11:31] LABS: PTHIN 30.6 pg/mL (18.4-80.1)
== END | disposition home or self-care (01) ==
LOC: PAVLAB 10:36
PROVIDERS: PCP Family Medicine; Referring Provider Surgery; Visit Provider Surgery
DX: E89.2 Postprocedural hypoparathyroidism (principal)
CPT/HCPCS: 36415; 82310; 83970

== ENCOUNTER → 2023-07-01 | Outpatient (CLI) | payer BC, SELFPAY ==
--- OUTSIDE RECORDS SUMMARY | 2023-07-01 09:24 | XMS RPT_ITS | CCD ---
Author Name Unknown Address [address] [place] [address] Organization [facility] Care Team Providers Care Optical Lathe Operator Name Role Phone Cintia Brewer MD Primary Care Provider CLEVELAND, TAMMIE Referring Unavailable CINTIA BREWER Primary Care Unavailable CLEVELAND, TAMMIE Referring Unavailable CINTIA BREWER Primary Care Unavailable [place], TAMMIE Referring Unavailable CINTIA BREWER Primary Care Unavailable [place], TAMMIE Attending Unavailable CINTIA BREWER Primary Care Unavailable Allergies Allergy Classification Reported Allergen(s) Allergy Type Date of Onset Reaction(s) Facility (6 sources) Amoxicillin; Translations: [AMOXICILLIN] Drug Allergy 04-16-2007 [facility] Work Phone: Medications Current Medications Medication Drug Class(es) Dates Sig (Normalized) Sig (Original) Inulin (1 source) End: 02-11-2023 FIBER CHOICE ORAL Take by mouth. 0 02/11/2023 Discontinued Completed/Discontinued Medications Medication Drug Class(es) Dates Sig (Normalized) Sig (Original) cholecalciferol, vitamin D3, (VITAMIN D3 ORAL) (5 sources) cholecalciferol, vitamin D3, (VITAMIN D3 ORAL) Take by mouth. 0 Active Problems Active Problems Problem Classification Problem Date Documented Date Episodic/Chronic Immunizations and screening for infectious disease (4 sources) Patient encounter status; Translations: [Encounter for screening for human papillomavirus (HPV)] 02-11-2023 Episodic Menopausal disorders (5 sources) Menorrhagia; Translations: [Excessive bleeding in the premenopausal period] Onset: 05-26-2012 05-26-2012 Chronic Menstrual disorders (3 sources) Irregular periods; Translations: [Irregular menstruation, unspecified] Onset: 03-10-2023 02-11-2023 Chronic Other screening for suspected conditions (not mental disorders or infectious disease) (1 source) Encounter for screening mammogram for malignant neoplasm of breast; Translations: [Encounter for screening mammogram for breast cancer] Onset: 03-10-2023 Episodic Past or Other Problems Problem Classification Problem Date Documented Da te Episodic/Chronic Headache; including migraine (5 sources) Headache; Translations: [Headache] Onset: 05-26-2012 05-26-2012 Episodic Results Test Name Value Interpretation Reference Range Facil ity Vital Signs Date Time Vital Sign Value Performing Clinician Faci lity 02-11-2023 06:55-0400 Body height 180.3 cm Tammie Cleveland VERTICA ARCHITECT.PERSONAL FINANCE INSTRUCTOR Work Phone: [facility] 02-11-2023 06:55-0400 Body weight 102.24 kg Tammie Cleveland VERTICA ARCHITECT.PERSONAL FINANCE INSTRUCTOR Work Phone: [facility] 02-11-2023 06:55-0400 Diastolic blood pressure 100 mm[Hg] Tammie Pine Knot VERTICA ARCHITECT.PERSONAL FINANCE INSTRUCTOR Work Phone: [facility] 02-11-2023 06:55-0400 Systolic blood pressure 170 mm[Hg] Tammie [place] VERTICA ARCHITECT.PERSONAL FINANCE INSTRUCTOR Work Phone: [facility] Encounters Encounter Date Encounter Type Care Provider Facility Start: 03-11-2023 ambulatory Tammie Cleveland VERTICA ARCHITECT.PERSONAL FINANCE INSTRUCTOR Work Phone: OB/Gynecology Procedures Date Procedure Procedure Detail Performing Clinician Start: 03-10-2023 Screening mammograph y bi 2-view breast inc cad Tammie Cleveland VERTICA ARCHITECT.PERSONAL FINANCE INSTRUCTOR Work Phone: Start: 03-10-2023 Us transvaginal Tammie M etcalf VERTICA ARCHITECT.PERSONAL FINANCE INSTRUCTOR Work Phone: Start: 02-11-2023 Lipid 1996 panel - S pato or Plasma Tammie [place] VERTICA ARCHITECT.PERSONAL FINANCE INSTRUCTOR Work Phone: Start: 01-17-2020 Mammography Tammie Bojorquez jean-paul VERTICA ARCHITECT.PERSONAL FINANCE INSTRUCTOR Work Phone: Plan of Treatment Date Care Activity Detail Author Start: 02-12-2028 HPV Testing HPV Testing [facility] Start: 02-12-2028 Lipid 1996 panel - S pato or Plasma Lipid Screening [facility] Start: 02-12-2028 Pap Testing Pap Testing [facility] Start: 02-11-2026 DIABETES SCREEN [facility] Start: 02-11-2026 Diabetes Screening Diabetes Screenin g [facility] Start: 03-10-2024 Mammography Mammogram Screening [facility] Start: 02-14-2023 Covid-19 Vaccine () Covid-19 Vaccine () [facility] Start: 02-14-2023 Influenza vaccination [facility] Start: 02-11-2023 End: 04-13-2023 25-hydroxyvitamin D3 [Mass/volume] in Serum or Plasma [facility] Work Phone: Immunizations Immunization Date Immunization Notes Care Provider Mariia stephen 03-26-2022 influenza virus vacc ine, unspecified formulation Tammie Guthrie VERTICA ARCHITECT.PERSONAL FINANCE INSTRUCTOR Work Phone: [facility] Payers Date Payer Category Payer Unknown [employer] PPO [id number] 2021-Present [phone] [address] [place] [address] PPO [id number] 2021 Unknown [id number] Social History Date Type Detail Facility [facility]: [facility] Work Phone: Start: 02-11-2023 Tobacco use and exposure Smoke less tobacco non-user [facility] Work Phone: Start: 02-11-2023 Alcohol intake Current non-dr corporate quality manager of alcohol (finding) [facility] Start: 01-17-2020 End: 02-11-2023 History of Social function [facility] Work Phone: Start: 01-17-2020 End: 02-11-2023 Social connection and isolation panel [facility] Work Phone: Do you belong to any clubs or organizations such as orthodox groups, unions, fraternal or athletic groups, or school groups? No [facility] Work Phone: Are you now , , , , never or living with a partner? [facility] Work Phone: Do you feel stress - tense, restless, nervous, or anxious, or unable to sleep at night because your mind is troubled all the time - these days [OSQ] Not at all [facility] Work Phone: (I/We) worried wheth er (my/our) food would run out before (I/we) got money to buy more. Never true [facility] Work Phone: In the past 12 month s, has lack of transportation kept you from medical appointments or from getting medications? No [facility] Work Phone: Start: 01-17-2020 Education 13 [facility] Start: 1965 Sex Assigned At [facility] file [facility] NEGATED: Highlighted rowStart: NINF History of tobacco use Passive smoker [facility] Work Phone: Clinical Notes 02-11-2023 to 03-11-2023 Letter - Coordinator, Mammography - 03/11/2023 11:23 AM Jacklyn Lutz Mammo Tech - 03/10/2023 8:10 AM Catherine Moura RDSC - 03/10/2023 7:00 AM EDT Note Date & Type Note Facility 03-11-2023 Miscellaneous Notes March 11, 2023 PID: [id number] Katerina Hutson [address] [place] [address] Dear Ms. Hutson, We are pleased to inform you that the results of your recent breast imaging exam on 03/10/2023 are normal. Your mammogram demonstrates that you have dense breast tissue, which could hide abnormalities. Dense breast tissue, in and of itself, is a relatively common condition. Therefore, this information is not provided to cause undue concern; rather, it is to raise your awareness and promote discussion with your health care provider regarding the presence of dense breast tissue in addition to other risk factors. Early detection of cancer is very important. We also understand recommendations regarding breast cancer screening are controversial. Please discuss with your primary care provider which strategy is best for you and whether a mammogram is right for you. Your imaging studies and report will be kept on file at [facility] as part of your permanent medical record and are available for your continuing care. Thank you for allowing us to help in meeting your health care needs. Sincerely, Dr. Quintanilla Interpreting Radiologist [facility] (Normal over 40) documented in this encounter [facility] 03-10-2023 Note HNO ID: [id number] Author: Jacklyn Agudelo Mammo Tech Service: ? Author Type: Ceo And President Type: Progress Notes Filed: 03/10/2023 8:03 AM Note Text: Radiology Service Progress Note PATIENT NAME: Katerina Hutson DATE OF SERVICE: March 10, 2023 TIME: 7:46 AM PATIENT IDENTITY VERIFICATION COMPLETED USING TWO (2) IDENTIFIERS: Name and Date of confirmed by patient verbally. FALL SCREENING: Has the patient had 2 falls in the last year or 1 fall with injury or currently using an Ambulatory Assistive Device (Walker, Cane, Wheelchair, Crutches, etc.)? No PATIENT GENDER DATA: Female. status: : No status: NO. PATIENT RELEVANT IMPLANT DATA REVIEWED: Not Applicable RADIOLOGY DEPARTMENT: Mammography PERIPHERAL IV DATA: Not applicable SIGNED BY: Bernice Cisneros March 10, 2023 7:46 AM [facility] 03-10-2023 Note HNO ID: [id number] Author: Catherine Liu RDMS Service: ? Author Type: Carbon Coating Machine Operator Type: Progress Notes Filed: 03/10/2023 11:09 AM Note Text: Radiology Service Progress Note PATIENT NAME: Katerina Hutson DATE OF SERVICE: March 10, 2023 TIME: 11:09 AM PATIENT IDENTITY VERIFICATION COMPLETED USING TWO (2) IDENTIFIERS: Name and Date of confirmed by patient verbally. FALL SCREENING: Has the patient had 2 falls in the last year or 1 fall with injury or currently using an Ambulatory Assistive Device (Walker, Cane, Wheelchair, Crutches, etc.)? No PATIENT GENDER DATA: Female. status: : No status: NO. PATIENT RELEVANT IMPLANT DATA REVIEWED: Not Applicable RADIOLOGY DEPARTMENT: Ultrasound PERIPHERAL IV DATA: Not applicable SIGNED BY: Catherine Liu RDMS Angie March 10, 2023 11:09 AM [facility] 03-10-2023 History of Presen t illness Narrative Radiology Service Progress Note PATIENT NAME: Katerina Hutson DATE OF SERVICE: March 10, 2023 TIME: 7:46 AM PATIENT IDENTITY VERIFICATION COMPLETED USING TWO (2) IDENTIFIERS: Name and Date of confirmed by patient verbally. FALL SCREENING: Has the patient had 2 falls in the last year or 1 fall with injury or currently using an Ambulatory Assistive Device (Walker, Cane, Wheelchair, Crutches, etc.)? No PATIENT GENDER DATA: Female. status: : No status: NO. PATIENT RELEVANT IMPLANT DATA REVIEWED: Not Applicable RADIOLOGY DEPARTMENT: Mammography PERIPHERAL IV DATA: Not applicable SIGNED BY: Ira Cisnerosedjing Anette March 10, 2023 7:46 AM documented in this encounter [facility] 03-10-2023 History of Presen t illness Narrative Radiology Service Progress Note PATIENT NAME: Katerina Hutson DATE OF SERVICE: March 10, 2023 TIME: 11:09 AM PATIENT IDENTITY VERIFICATION COMPLETED USING TWO (2) IDENTIFIERS: Name and Date of confirmed by patient verbally. FALL SCREENING: Has the patient had 2 falls in the last year or 1 fall with injury or currently using an Ambulatory Assistive Device (Walker, Cane, Wheelchair, Crutches, etc.)? No PATIENT GENDER DATA: Female. status: : No status: NO. PATIENT RELEVANT IMPLANT DATA REVIEWED: Not Applicable RADIOLOGY DEPARTMENT: Ultrasound PERIPHERAL IV DATA: Not applicable SIGNED BY: Catherine Liu RDMS Angie March 10, 2023 11:09 AM documented in this encounter [facility] 02-11-2023 Note HNO ID: [id number] Author: Tammie Guthrie APRN.PERSONAL FINANCE INSTRUCTOR Service: ? Author Type: Nurse Practitioner Type: Progress Notes Filed: 02/11/2023 8:17 AM Note Text: Katerina is a 57 year old who presents for an annual gynecologic exam with complaints, irregular menstrual cycles . Patient states that she went approximately 12 months with no menstrual cycle then in May 2022 she had spotting for few days and then about the middle of the month had a full week of bleeding. She had a regular cycle in June and July and no bleeding since then. She also complains of changes with her hair and that she is cold all the time. Her blood pressure upon arrival today was 170/100. Serial BP machine was placed on patient BPs were 164/116, 164/114, 164/116. Postmenopausal: irregular cycle HRT use: No. Last Pap: 09/13/2015 normal HPV: 09/04/2015 negative History of abnormal pap: No Last mammogram: 2019 normal History of abnormal mammogram: Yes dx-benign left breast Sexually active: Yes Pain with intercourse: No Postcoital bleeding: Yes- spotting x 1 episode OB History T2 L2 SAB0 IAB0 Ectopic0 Multiple0 Live Births0 Hand Marker History LMP: 07/17/2022, Having periods Age at Menarche: Age at First : Age at Menopause: Hand Marker History Comments: Sexual Activity: Yes; Male Contraception: Vasectomy PAST MEDICAL HISTORY Diagnosis Date Pilonidal cyst 1989 PAST SURGICAL HISTORY Procedure Laterality Date PAST SURGICAL HISTORY OF pilonidal cyst FAMILY HISTORY Problem Relation Age of Onset Coronary Artery Disease Mother triple bypass Diabetes Mother other (cysts) Mother breast Cerebral Embolism Father Renal Cell Cancer Father other (Auto accident) Brother SOCIAL HISTORY Social History Tobacco Use Smoking status: Never Passive exposure: Never Smokeless tobacco: Never Vaping Use Vaping Use: Never used Substance Use Topics Alcohol use: No Drug use: No REVIEW OF SYSTEMS Abdomen: No abdominal pain, nausea, vomiting, diarrhea, or constipation. No bloating, early satiety, indigestion, or increased flatulence. Bladder: No dysuria, gross hematuria, urinary frequency, urinary urgency, or incontinence Breast: No breast lumps, nipple d/c, overlying skin changes, redness or skin retraction Allergies and current medication updated:Yes EXAM: Ht 5' 11 (1.80m) Wt 225 lb 6.4 oz (102.2kg) LMP 07/17/2022 BMI 31.45 kg/(m2). GENERAL: pleasant, female in no apparent distress HEENT: Normocephalic, atraumatic, mucus membranes moist, and no lesions NECK: Supple, full range of motion, no adenopathy, and thyroid normal DERMATOLOGY: Normal, without lesions, non-icteric, and non-hirsute BREAST: soft, non-tender, symmetric, no dominant mass, normal nipple-areolar complex, no lymphadenopathy, and no nipple discharge CHEST: Normal inspiratory effort ABDOMEN: soft, non-tender, and no masses PELVIC: external genitalia normal, normal Bartholin's glands, urethra, [place]'s glands, no vulvar lesions, no cervical lesions, physiologic discharge present, normal appearing perineal body and perianal region BIMANUAL: uterus normal size, shape and consistency, no adnexal masses, and non-tender RECTOVAGINAL: deferred. NEURO: alert and oriented x3,exam grossly non-focal EXTREMITIES: normal ASSESSMENT/PLAN: 1) Health maintenance: Pap done with HPV. Mammogram ordered Nutrition, exercise and routine health maintenance exams reviewed. Calcium/Vitamin D supplementation information provided. 2) Follow up one year or sooner as needed TSH, T4, T3, Vit D, Fsh, estradiol, Lipid, cbc, cmp Pelvic US Lisinopril 10 mg ordered Pt instructed to contact PCP today Will notify patient of test results. Tammie Guthrie APRN.[facility] 02-11-2023 History of Presen t illness Narrative Katerina is a 57 year old who presents for an annual gynecologic exam with complaints, irregular menstrual cycles . Patient states that she went approximately 12 months with no menstrual cycle then in May 2022 she had spotting for few days and then about the middle of the month had a full week of bleeding. She had a regular cycle in June and July and no bleeding since then. She also complains of changes with her hair and that she is cold all the time. Her blood pressure upon arrival today was 170/100. Serial BP machine was placed on patient BPs were 164/116, 164/114, 164/116. Postmenopausal: irregular cycle HRT use: No. Last Pap: 09/13/2015 normal HPV: 09/04/2015 negative History of abnormal pap: No Last mammogram: 2019 normal History of abnormal mammogram: Yes dx-benign left breast Sexually active: Yes Pain with intercourse: No Postcoital bleeding: Yes- spotting x 1 episode OB History T2 L2 SAB0 IAB0 Ectopic0 Multiple0 Live Births0 Hand Marker History LMP: 07/17/2022, Having periods Age at Menarche: Age at First : Age at Menopause: Hand Marker History Comments: Sexual Activity: Yes; Male Contraception: Vasectomy PAST MEDICAL HISTORY Diagnosis Date Pilonidal cyst 1989 PAST SURGICAL HISTORY Procedure Laterality Date PAST SURGICAL HISTORY OF pilonidal cyst FAMILY HISTORY Problem Relation Age of Onset Coronary Artery Disease Mother triple bypass Diabetes Mother other (cysts) Mother breast Cerebral Embolism Father Renal Cell Cancer Father other (Auto accident) Brother SOCIAL HISTORY Social History Tobacco Use Smoking status: Never Passive exposure: Never Smokeless tobacco: Never Vaping Use Vaping Use: Never used Substance Use Topics Alcohol use: No Drug use: No REVIEW OF SYSTEMS Abdomen: No abdominal pain, nausea, vomiting, diarrhea, or constipation. No bloating, early satiety, indigestion, or increased flatulence. Bladder: No dysuria, gross hematuria, urinary frequency, urinary urgency, or incontinence Breast: No breast lumps, nipple d/c, overlying skin changes, redness or skin retraction Allergies and current medication updated:Yes EXAM: Ht 5' 11 (1.80m) Wt 225 lb 6.4 oz (102.2kg) LMP 07/17/2022 BMI 31.45 kg/(m^2). GENERAL: pleasant, female in no apparent distress HEENT: Normocephalic, atraumatic, mucus membranes moist, and no lesions NECK: Supple, full range of motion, no adenopathy, and thyroid normal DERMATOLOGY: Normal, without lesions, non-icteric, and non-hirsute BREAST: soft, non-tender, symmetric, no dominant mass, normal nipple-areolar complex, no lymphadenopathy, and no nipple discharge CHEST: Normal inspiratory effort ABDOMEN: soft, non-tender, and no masses PELVIC: external genitalia normal, normal Bartholin's glands, urethra, [place]'s glands, no vulvar lesions, no cervical lesions, physiologic discharge present, normal appearing perineal body and perianal region BIMANUAL: uterus normal size, shape and consistency, no adnexal masses, and non-tender RECTOVAGINAL: deferred. NEURO: alert and oriented x3,exam grossly non-focal EXTREMITIES: normal ASSESSMENT/PLAN: 1) Health maintenance: Pap done with HPV. Mammogram ordered Nutrition, exercise and routine health maintenance exams reviewed. Calcium/Vitamin D supplementation information provided. 2) Follow up one year or sooner as needed TSH, T4, T3, Vit D, Fsh, estradiol, Lipid, cbc, cmp Pelvic US Lisinopril 10 mg ordered Pt instructed to contact PCP today Will notify patient of test results. Tammie Guthrie APRN.CNP documented in this encounter [facility] Diagnosis Irregular menstrual cycle [facility] Diagnosis Encounter for screening mammogram for breast cancer [facility] Diagnostic Procedure Only (Routine) - Authorized Specialty Diagnoses / Procedures Referred By Contgary ingram Referred To Contact [facility] IMAGING Diagnoses Irregular menstrual cycle Procedures US FEMALE PELVIS TRANSVAG US TRANSVAGINAL Tammie Guthrie APRN.CNP [address] [place] [address] [place] [address] Referral ID Status Reason Start Date Expiration Date Visits Requested Visits Authorized [id number] Authorized Auto-Generat ed Referral 02/11/2023 03/12/2024 1 1 * Diagnostic Procedure Only (Routine) - Authorized Specialty Diagnoses / Procedures Referred By Contac t Referred To Contact [facility] Diagnoses Encounter for screening mammogram for breast cancer Procedures NATE SCREENING SCREENING MAMMOGRAPHY BI 2-VIEW BREAST INC CAD Tammie Guthrie APRN.CNP [address] [place] [address] [facility] [address] [place] [address] Referral ID Status Reason Start Date Expiration Date Visits Requested Visits Authorized [id number] Authorized Auto-Generat ed Referral 02/11/2023 03/12/2024 1 1 [facility] for referral (narrative)* Diagnostic Procedure Only (Routine) - Closed Specialty Diagnoses / Procedures Referred By Contac t Referred To Contact US IMAGING Diagnoses Irregular menstrual cycle Procedures US FEMALE PELVIS TRANSVAG US TRANSVAGINAL Tammie Guthrie APRN.PERSONAL FINANCE INSTRUCTOR [address] [place] [address] [place] [address] Referral ID Status Reason Start Date Expiration Date V isits Requested Visits Authorized [id number] Closed Auto-Generate d Referral 02/11/2023 03/12/2024 1 1 [facility] for referral (narrative)* Diagnostic Procedure Only (Routine) - Closed Specialty Diagnoses / Procedures Referred By Contac t Referred To Contact [facility] Diagnoses Encounter for screening mammogram for breast cancer Procedures NATE SCREENING SCREENING MAMMOGRAPHY BI 2-VIEW BREAST INC CAD Pine KnotTammie VERTICA ARCHITECT.PERSONAL FINANCE INSTRUCTOR [address] [place] [address] [facility] [address] [place] [address] Referral ID Status Reason Start Date Expiration Date V isits Requested Visits Authorized [id number] Closed Auto-Generate d Referral 02/11/2023 03/12/2024 1 1 T [facility] for visit Narrative* Diagnostic Procedure Only (Routine) - Closed Specialty Diagnoses / Procedures Referred By Contac t Referred To Contact [facility] IM[facility] Diagnoses Encounter for screening mammogram for breast cancer Procedures NATE SCREENING SCREENING MAMMOGRAPHY BI 2-VIEW BREAST INC CAD Tammie Guthrie APRN.PERSONAL FINANCE INSTRUCTOR [address] [place] [address] [facility] [address] [place] [address] Referral ID Status Reason Start Date Expiration Date V isits Requested Visits Authorized [id number] Closed Auto-Generate d Referral 02/11/2023 03/12/2024 1 1 [facility] Summary Purpose Family History No Family History Records Found Advance Directives No Advanced Directives Records Found Additional Source Comments Source Comments (unrecognize d section and content) In the event this informatio n is protected by the Federal Confidentiality of Alcohol and Drug Abuse Patient Records regulations: The Federal rules restrict any use of the information to criminally investigate or prosecute any alcohol or drug abuse patient.[facility] the event this information is protected by the Federal Confidentiality of Alcohol and Drug Abuse Patient Records regulations: The Federal rules restrict any use of the information to criminally investigate or prosecute any alcohol or drug abuse patient.[facility] FoundationIn the event this information is protected by the Federal Confidentiality of Alcohol and Drug Abuse Patient Records regulations: The Federal rules restrict any use of the information to criminally investigate or prosecute any alcohol or drug abuse patient.[facility] Foundation[facility] the event this information is protected by the Federal Confidentiality of Alcohol and Drug Abuse Patient Records regulations: The Federal rules restrict any use of the information to criminally investigate or prosecute any alcohol or drug abuse patient.[facility] Foundation[facility] the event this information is protected by the Federal Confidentiality of Alcohol and Drug Abuse Patient Records regulations: The Federal rules restrict any use of the information to criminally investigate or prosecute any alcohol or drug abuse patient.[facility] Reason for Visit (unrecogniz ed section and content) Reason Comments Radiology US Specialty Diagnoses / Procedures Referred By Contgary t Referred To Contact US IMAGING Diagnoses Irregular menstrual cycle Procedures US FEMALE PELVIS TRANSVAG US TRANSVAGINAL Tammie Guthrie APRN.PERSONAL FINANCE INSTRUCTOR [address] [place] [address] [place] [address] Referral ID Status Reason Start Date Expiration Date V isits Requested Visits Authorized [id number] Closed Auto-Generate d Referral 02/11/2023 03/12/2024 1 1 Care Teams (unrecognized sec tion and content) Optical Lathe Operator Relationship Specialty Start Date End Date Cintia Brewer MD PCP - General Family Medicine 03/28/14 Optical Lathe Operator Relationship Specialty Start Date End Date Cintia Brewer MD PCP - General Family Medicine 03/28/14 Optical Lathe Operator Relationship Specialty Start Date End Date Cintia Brewer MD PCP - General Family Medicine 03/28/14 Optical Lathe Operator Relationship Specialty Start Date End Date Cintia Brewer MD PCP - General Family Medicine 03/28/14 INFORMATION SOURCE (unrecogn ized section and content) FOR RECORDS PERTAINING TO PATIENTS WHO ARE OR HAVE BEEN ENROLLED IN A CHEMICAL DEPENDENCY/SUBSTANCEABUSE PROGRAM, SOME INFORMATION MAY BE OMITTED. This clinical summary was aggregated from multiple sources. Caution should be exercised in using it in the provision of clinical care. This summary normalizes information from multiple sources, and as a consequence, information in this document may materially change the coding, format and clinical context of patient data. In addition, data may be omitted in some cases. CLINICAL DECISIONS SHOULD BE BASED ON THE PRIMARY CLINICAL RECORDS. [facility]. provides no warranty or guarantee of the accuracy or completeness of information in this document.
[2023-07-01 10:01] LABS: Absolute Lymphocyte Count 1.73 X10^3/uL (0.83-4.51); Absolute Neutrophil Count 3.4 X10^3/uL (2.0-7.7); Basophil# 0.08 X10^3/uL; Basophil% 1.3 % (0-1); Eosinophil# 0.12 X10^3/uL; Hematocrit 40.9 % (37-47); Hemoglobin 13.2 g/dL (12.0-15.0); Lymphocyte # 1.73 X10^3/ul (0.83-4.51); Lymphocyte % 28.9 % (19-41); Mean Corp Hgb Conc 32.3 g/dL (32-36); Mean Corpuscular Hgb 29.9 pg (27.0-32.0); Mean Corpuscular Volume 92.5 fL (81-99); Mean Platelet Vol. 10.4 fl (6.2-12.0); Monocyte# 0.59 X10^3/uL; Monocyte% 9.9 % (0-10); NRBC Flagged by Analyzer 0 % (0-5); Neutrophil # 3.43 X10^3/uL (2.7-7.7); Neutrophil % 57.4 % (47-70); Platelet Count 317 K/mm3 (150-450); RBC Distribution Width CV 12.9 % (11.6-14.6); Red Blood Count 4.42 M/mm3 (4.2-5.4)
[2023-07-01 10:18] LABS: Microalbumin,Random Urine 9.2 mg/L (NO RANGE EST.); Microalbumin:Creatinine Ratio 17.2 mg/g CRE (<30 mg/g CRE)
[2023-07-01 10:39] LABS: PTHIN 152.8 pg/mL (18.4-80.1)
[2023-07-01 10:44] LABS: ALB/GLOB Ratio 1.1 RATIO (0.9-2.4); AST(SGOT) 12 U/L (15-37); Alanine Aminotransfer ALT/SGPT 21 U/L (13-56); Alkaline Phosphatase 172 U/L (45-117); Anion Gap 6 (5-15); BUN 16 mg/dL (7-18); BUN/Creat Ratio 17.4 RATIO (10-20); Calcium,Total 9.2 mg/dL (8.5-10.1); Chloride 108 mmol/L (98-107); Cholesterol 209 mg/dL (200); Creatinine, Serum 0.92 mg/dL (0.55-1.02); EST Glomerular Filtration Rate 67 mL/min (>60); Est Glom Filt Rate - Afr Amer 81 mL/min (>60); Globulin 3.5 g/dL (2.2-4.2); Glucose 103 mg/dL (74-106); High Density Lipoprotein 44 mg/dL; Magnesium 2.3 mg/dL (1.6-2.6); Potassium 4.1 mmol/L (3.5-5.1); Protein, Total 7.5 g/dL (6.4-8.2); Sodium Level 139 mmol/L (136-145); Triglycerides 170 mg/dL; Very Low Density Lipoprotein 34 mg/dL (5-40)
== END | disposition home or self-care (01) ==
LOC: MFPLAB 08:56
PROVIDERS: PCP Family Medicine; Visit Provider Family Medicine
DX: I10 Essential (primary) hypertension (principal); E21.3 Hyperparathyroidism, unspecified
CPT/HCPCS: 36415; 80053; 80061; 82043; 82306; 82570; 83735; 83970; 84443; 85025

== ENCOUNTER → 2023-08-06 | Outpatient (CLI) | payer BC, SELFPAY ==
[2023-08-06 17:33] LABS: Calcium,Total 9.3 mg/dL (8.5-10.1)
[2023-08-06 17:38] LABS: PTHIN 102.6 pg/mL (18.4-80.1)
--- OUTSIDE RECORDS SUMMARY | 2023-08-06 19:55 | XMS RPT_ITS | CCD ---
Author Name Unknown Address [address] [place] [address] Organization [facility] Care Team Providers Care Flower Pot Press Operator Name Role Phone Cintia Brewer MD [...] sources) Amoxicillin; Translations: [AMOXICILLIN] Drug Allergy 04-16-2007 [facility] Work Phone: Medications Current Medications Medication Drug [...] 02-11-2023 06:55-0400 Body height 180.3 cm Tammie Durham COMMUNICATIONS ENGINEER.WORKFORCE DEVELOPMENT SPECIALIST Work Phone: [facility] 02-11-2023 06:55-0400 Body weight 102.24 kg Tammie Cleveland COMMUNICATIONS ENGINEER.WORKFORCE DEVELOPMENT SPECIALIST Work Phone: [facility] 02-11-2023 06:55-0400 Diastolic blood pressure 100 mm[Hg] Tammie Cleveland COMMUNICATIONS ENGINEER.WORKFORCE DEVELOPMENT SPECIALIST Work Phone: [facility] 02-11-2023 06:55-0400 Systolic blood pressure 170 mm[Hg] Tammie Cleveland COMMUNICATIONS ENGINEER.WORKFORCE DEVELOPMENT SPECIALIST Work Phone: [facility] Encounters Encounter Date Encounter Type Care Provider Facility Start: 03-11-2023 ambulatory Tammie Cleveland COMMUNICATIONS ENGINEER.WORKFORCE DEVELOPMENT SPECIALIST Work Phone: OB/Gynecology Procedures Date Procedure Procedure Detail Performing Clinician Start: 03-10-2023 Screening mammograph y bi 2-view breast inc cad Tammie Cleveland COMMUNICATIONS ENGINEER.WORKFORCE DEVELOPMENT SPECIALIST Work Phone: Start: 03-10-2023 Us transvaginal Tammie M etcalf COMMUNICATIONS ENGINEER.WORKFORCE DEVELOPMENT SPECIALIST Work Phone: Start: 02-11-2023 Lipid 1996 panel - S pato or Plasma Tammie Durham COMMUNICATIONS ENGINEER.WORKFORCE DEVELOPMENT SPECIALIST Work Phone: Start: 01-17-2020 Mammography Tammie Bojorquez jean-paul COMMUNICATIONS ENGINEER.WORKFORCE DEVELOPMENT SPECIALIST Work Phone: Plan of Treatment Date Care Activity Detail Author Start: 02-12-2028 HPV Testing HPV Testing [facility] Start: 02-12-2028 Lipid 1996 panel - S pato or Plasma Lipid Screening [facility] Start: 02-12-2028 Pap Testing Pap Testing [facility] Start: 02-11-2026 [facility]AB[facility] Start: 02-11-2026 Diabetes Screening Diabetes Screenin g [facility] Start: 03-10-2024 Mammography Mammogram Screening [facility] Start: 02-14-2023 Covid-19 Vaccine () Covid-19 Vaccine () [facility] Start: 02-14-2023 Influenza vaccination C [facility] Start: 02-11-2023 End: 04-13-2023 25-hydroxyvitamin D3 [Mass/volume] in Serum or Plasma [facility] Work Phone: Immunizations Immunization Date Immunization Notes Care Provider Mariia stephen 03-26-2022 influenza virus vacc ine, unspecified formulation Tammie Guthrie COMMUNICATIONS ENGINEER.WORKFORCE DEVELOPMENT SPECIALIST Work Phone: [facility] Payers Date Payer Category Payer Unknown [employer] PPO [id number] 2021-Present [phone] [address] [place] [address] PPO [id number] 2021 Unknown [id number] Social History Date Type Detail Facility Start: [facility]11[facility]23 [facility] Work Phone: Start: 02-11-2023 Tobacco use and exposure Smoke less tobacco non-user [facility] Work Phone: Start: 02-11-2023 Alcohol intake Current non-dr sole inker of alcohol (finding) [facility] Start: 01-17-2020 End: 02-11-2023 History of Social function [facility] Work Phone: Start: 01-17-2020 End: 02-11-2023 Social connection and isolation panel [facility] Work Phone: Do you belong to any clubs or organizations such as mormonism groups, unions, fraternal or athletic groups, or school groups? No [facility] Work Phone: Are you now , , , , never or living with a partner? [facility] Work Phone: Do you feel stress - tense, restless, nervous, or anxious, or unable to sleep at night because your mind is troubled all the time - these days [OSQ] Not at all [facility] Work Phone: (I/We) worried wheth er (my/our) food would run out before (I/we) got money to buy more. Never true [facility] Work Phone: In the past 12 month s, has lack of transportation kept you from medical appointments or from getting medications? No [facility] Work Phone: Start: 01-17-2020 Education 13 [facility] Start: 1965 Sex Assigned At [facility] NEGATED: Highlighted rowStart: NINF History of tobacco use Passive smoker [facility] Work Phone: Clinical Notes 02-11-2023 to 03-11-2023 Letter - Coordinator, Mammography - 03/11/2023 11:23 AM Jacklyn Lutz Mammo Tech - 03/10/2023 8:10 AM Catherine Moura RDNH - 03/10/2023 7:00 AM EDT Note Date & Type Note Facility 03-11-2023 Miscellaneous Notes March 11, 2023 PID: [id number] Katerina Hutson [address] [place] [address] Dear Ms. Hutson, We are pleased to [...] report will be kept on file at [facility] as part of your permanent medical record and are available for your continuing care. Thank you for allowing us to help in meeting your health care needs. Sincerely, Dr. Quintanilla Interpreting Radiologist [facility] (Normal over 40) documented in this encounter [facility] 03-10-2023 Note HNO ID: [id number] Author: Jacklyn Agudelo Mammo Tech Service: ? Author Type: Supervisor Money Room Type: Progress Notes Filed: 03/10/2023 8:03 AM [...] Bernice Cisneros March 10, 2023 7:46 AM [facility] 03-10-2023 Note HNO ID: [id number] Author: Catherine Liu RDMS Service: ? Author Type: Change Management Specialist Type: Progress Notes Filed: 03/10/2023 11:09 AM [...] RDMS Angie March 10, 2023 11:09 AM [facility] 03-10-2023 History of Presen t illness [...] IV DATA: Not applicable SIGNED BY: Ira CisnerosLate [employer] Anette March 10, 2023 7:46 AM documented in this encounter [facility] 03-10-2023 History of Presen t illness [...] 2023 11:09 AM documented in this encounter [facility] 02-11-2023 Note HNO ID: [id number] Author: Tammie Guthrie APRN.WORKFORCE DEVELOPMENT SPECIALIST Service: ? Author Type: Nurse Practitioner Type: [...] L2 SAB0 IAB0 Ectopic0 Multiple0 Live Births0 Sucker Machine Operator History LMP: 07/17/2022, Having periods Age at Menarche: Age at First : Age at Menopause: Sucker Machine Operator History Comments: Sexual Activity: Yes; Male Contraception: [...] external genitalia normal, normal Bartholin's glands, urethra, [place]'s glands, no vulvar lesions, no cervical lesions, [...] notify patient of test results. Tammie Guthrie APRN.[facility] 02-11-2023 History of Presen t illness Narrative [...] L2 SAB0 IAB0 Ectopic0 Multiple0 Live Births0 Sucker Machine Operator History LMP: 07/17/2022, Having periods Age at Menarche: Age at First : Age at Menopause: Sucker Machine Operator History Comments: Sexual Activity: Yes; Male Contraception: [...] external genitalia normal, normal Bartholin's glands, urethra, [place]'s glands, no vulvar lesions, no cervical lesions, [...] Tammie Guthrie APRN.CNP documented in this encounter [facility] documented [facility] Diagnosis Irregular menstrual cycle [facility] Diagnosis Encounter for screening mammogram for breast cancer documented [facility] this [facility] Diagnostic Procedure Only (Routine) - Authorized Specialty Diagnoses / Procedures Referred By Contgary ingram Referred To Contact [facility] IMAGING Diagnoses Irregular menstrual cycle Procedures US FEMALE PELVIS TRANSVAG US TRANSVAGINAL Tammie Guthrie APRN.CNP [address] [place] [address] [place] [address] Referral ID Status Reason Start Date Expiration Date Visits Requested Visits Authorized [id number] Authorized Auto-Generat ed Referral 02/11/2023 03/12/2024 1 1 * Diagnostic Procedure Only (Routine) - Authorized Specialty Diagnoses / Procedures Referred By Contac t Referred To Contact [facility] Diagnoses Encounter for screening mammogram for breast cancer Procedures NATE SCREENING SCREENING MAMMOGRAPHY BI 2-VIEW BREAST INC CAD Tammie Guthrie APRN.CNP [address] [place] [address] [facility] [address] [place] [address] Referral ID Status Reason Start Date Expiration Date Visits Requested Visits Authorized [id number] Authorized Auto-Generat ed Referral 02/11/2023 03/12/2024 1 1 [facility] for referral (narrative)* Diagnostic Procedure Only (Routine) - Closed Specialty Diagnoses / Procedures Referred By Contac t Referred To Contact US IMAGING Diagnoses Irregular menstrual cycle Procedures US FEMALE PELVIS TRANSVAG US TRANSVAGINAL Tammie Guthrie APRN.WORKFORCE DEVELOPMENT SPECIALIST [address] [place] [address] [place] [address] Referral ID Status Reason Start Date Expiration Date V isits Requested Visits Authorized [id number] Closed Auto-Generate d Referral 02/11/2023 03/12/2024 1 1 [facility] for referral (narrative)* Diagnostic Procedure Only (Routine) - Closed Specialty Diagnoses / Procedures Referred By Contac t Referred To Contact [facility] Diagnoses Encounter for screening mammogram for breast cancer Procedures NATE SCREENING SCREENING MAMMOGRAPHY BI 2-VIEW BREAST INC CAD ClevelandTammie COMMUNICATIONS ENGINEER.WORKFORCE DEVELOPMENT SPECIALIST [address] [place] [address] [facility] [address] [place] [address] Referral ID Status Reason Start Date Expiration Date V isits Requested Visits Authorized [id number] Closed Auto-Generate d Referral 02/11/2023 03/12/2024 1 1 T [facility] for visit Narrative* Diagnostic Procedure Only (Routine) - Closed Specialty Diagnoses / Procedures Referred By Contac t Referred To Contact [facility] Diagnoses Encounter for screening mammogram for breast cancer Procedures NATE SCREENING SCREENING MAMMOGRAPHY BI 2-VIEW BREAST INC CAD Tammie Guthrie APRN.WORKFORCE DEVELOPMENT SPECIALIST [address] [place] [address] [facility] [address] [place] [address] Referral ID Status Reason Start Date Expiration Date V isits Requested Visits Authorized [id number] Closed Auto-Generate d Referral 02/11/2023 03/12/2024 1 1 [facility] Summary Purpose Family History No Family History [...] or prosecute any alcohol or drug abuse patient.[facility] the event this information is protected by the Federal Confidentiality of Alcohol and Drug Abuse Patient Records regulations: The Federal rules restrict any use of the information to criminally investigate or prosecute any alcohol or drug abuse patient.[facility] the event this information is protected by the Federal Confidentiality of Alcohol and Drug Abuse Patient Records regulations: The Federal rules restrict any use of the information to criminally investigate or prosecute any alcohol or drug abuse patient.[facility] the event this information is protected by the Federal Confidentiality of Alcohol and Drug Abuse Patient Records regulations: The Federal rules restrict any use of the information to criminally investigate or prosecute any alcohol or drug abuse patient.[facility] the event this information is protected by the Federal Confidentiality of Alcohol and Drug Abuse Patient Records regulations: The Federal rules restrict any use of the information to criminally investigate or prosecute any alcohol or drug abuse patient.[facility] Reason for Visit (unrecogniz ed section and content) Reason Comments Radiology US Specialty Diagnoses / Procedures Referred By Contgary t Referred To Contact US IMAGING Diagnoses Irregular menstrual cycle Procedures US FEMALE PELVIS TRANSVAG US TRANSVAGINAL Tammie Guthrie APRN.WORKFORCE DEVELOPMENT SPECIALIST [address] [place] [address] [place] [address] Referral ID Status Reason Start Date Expiration Date V isits Requested Visits Authorized [id number] Closed Auto-Generate d Referral 02/11/2023 03/12/2024 1 1 Care Teams (unrecognized sec tion and content) Flower Pot Press Operator Relationship Specialty Start Date End Date Cintia Brewer MD PCP - General Family Medicine 03/28/14 Flower Pot Press Operator Relationship Specialty Start Date End Date Cintia Brewer MD PCP - General Family Medicine 03/28/14 Flower Pot Press Operator Relationship Specialty Start Date End Date Cintia Brewer MD PCP - General Family Medicine 03/28/14 Flower Pot Press Operator Relationship Specialty Start Date End Date [...] BE BASED ON THE PRIMARY CLINICAL RECORDS. [facility]. provides no warranty or guarantee of the accuracy or completeness of information in this document.
== END | disposition home or self-care (01) ==
LOC: LAB 16:50
PROVIDERS: PCP Family Medicine; Referring Provider Surgery; Visit Provider Surgery
DX: E89.2 Postprocedural hypoparathyroidism (principal); E21.0 Primary hyperparathyroidism
CPT/HCPCS: 36415; 82310; 83970

== ENCOUNTER → 2023-08-27 | Outpatient (CLI) | payer BC, SELFPAY ==
[2023-08-27 17:32] LABS: Calcium,Total 9.9 mg/dL (8.5-10.1)
[2023-08-27 17:36] LABS: PTHIN 46.5 pg/mL (18.4-80.1)
--- OUTSIDE RECORDS SUMMARY | 2023-08-27 22:44 | XMS RPT_ITS | CCD ---
Author Name Unknown Address [address] [place] [address] Organization [facility] Care Team Providers Care Devops Developer Name Role Phone Cintia Brewer MD Primary [...] sources) Amoxicillin; Translations: [AMOXICILLIN] Drug Allergy 04-16-2007 [facility] Work Phone: Medications Current Medications Medication Drug [...] 02-11-2023 06:55-0400 Body height 180.3 cm Tammie Lakehead RN SECURITY.ETHYL BLENDER Work Phone: [facility] 02-11-2023 06:55-0400 Body weight 102.24 kg Tammie Lakehead RN SECURITY.ETHYL BLENDER Work Phone: [facility] 02-11-2023 06:55-0400 Diastolic blood pressure 100 mm[Hg] Tammei Lakehead RN SECURITY.ETHYL BLENDER Work Phone: [facility] 02-11-2023 06:55-0400 Systolic blood pressure 170 mm[Hg] Tammie Lakehead RN SECURITY.ETHYL BLENDER Work Phone: [facility] Encounters Encounter Date Encounter Type Care Provider Facility Start: 03-11-2023 ambulatory Tammie Cleveland RN SECURITY.ETHYL BLENDER Work Phone: OB/Gynecology Procedures Date Procedure Procedure Detail Performing Clinician Start: 03-10-2023 Screening mammograph y bi 2-view breast inc cad Tammie Cleveland RN SECURITY.ETHYL BLENDER Work Phone: Start: 03-10-2023 Us transvaginal Tammie M etcalf RN SECURITY.ETHYL BLENDER Work Phone: Start: 02-11-2023 Lipid 1996 panel - S pato or Plasma Tammie Lakehead RN SECURITY.ETHYL BLENDER Work Phone: Start: 01-17-2020 Mammography Tammie Bojorquez jean-paul RN SECURITY.ETHYL BLENDER Work Phone: Plan of Treatment Date Care Activity Detail Author Start: 02-12-2028 HPV Testing HPV Testing [facility] Start: 02-12-2028 Lipid 1996 panel - S pato or Plasma Lipid Screening [facility] Start: 02-12-2028 Pap Testing Pap Testing [facility] Start: 02-11-2026 DIABET[facility]EN [facility] Start: 02-11-2026 Diabetes Screening Diabetes Screenin g [facility] Start: 03-10-[address] [facility] Start: 02-14-2023 Covid-19 Vaccine () Covid-19 Vaccine () [facility] Start: 02-14-2023 Influenza vaccination [facility] Start: 02-11-2023 End: 04-13-2023 25-hydroxyvitamin D3 [Mass/volume] in Serum or Plasma [facility] Work Phone: Immunizations Immunization Date Immunization Notes Care Provider Mariia stephen 03-26-2022 influenza virus vacc ine, unspecified formulation Tammie Guthrie RN SECURITY.ETHYL BLENDER Work Phone: [facility] Payers Date Payer Category Payer Unknown [employer] PPO [id number] 2021-Present [phone] [address] [place] [address] PPO [id number] 2021 Unknown [id number] Social History Date Type Detail Facility Start: [facility]11-2023 [facility] Work Phone: Start: 02-11-2023 Tobacco use and exposure Smoke less tobacco non-user [facility] Work Phone: Start: 02-11-2023 Alcohol intake Current non-dr dispensing audiologist of alcohol (finding) [facility] Start: 01-17-2020 End: 02-11-2023 History of Social function [facility] Work Phone: Start: 01-17-2020 End: 02-11-2023 Social connection and isolation panel [facility] Work Phone: Do you belong to any clubs or organizations such as jehovah's witness groups, unions, fraternal or athletic groups, or school groups? No [facility] Work Phone: Are you now , , , , never or living with a partner? [facility] Work Phone: Do you feel stress - tense, restless, nervous, or anxious, or unable to sleep at night because your mind is troubled all the time - these days [OSQ] Not at all [facility] Work Phone: (I/We) worried wheth er (my/our) food would run out before (I/we) got money to buy more. Never true [facility] Work Phone: In the past 12 month s, has lack of transportation kept you from medical appointments or from getting medications? No [facility] Work Phone: Start: 01-17-2020 Education 13 [facility] Start: 1965 Sex Assigned At [facility] NEGATED: Highlighted rowStart: NINF History of tobacco use Passive smoker [facility] Work Phone: Clinical Notes 02-11-2023 to 03-11-2023 Letter - Coordinator, Mammography - 03/11/2023 11:23 AM Jacklyn Lutz Mammo Tech - 03/10/2023 8:10 AM Catherine Moura RDRI - 03/10/2023 7:00 AM EDT Note Date & Type Note Facility 03-11-2023 Miscellaneous Notes March 11, 2023 PID: [id number] Katerina Hutson [address] [place] [address] Dear Ms. Hutson, We are pleased to [...] report will be kept on file at [facility] as part of your permanent medical record and are available for your continuing care. Thank you for allowing us to help in meeting your health care needs. Sincerely, Dr. Quintanilla Interpreting Radiologist [facility] (Normal over 40) documented in this encounter [facility] 03-10-2023 Note HNO ID: [id number] Author: Jacklyn Agudelo Mammo Tech Service: ? Author Type: Inventory Control/Shipping Receiving Type: Progress Notes Filed: 03/10/2023 8:03 AM [...] Bernice Cisneros March 10, 2023 7:46 AM [facility] 03-10-2023 Note HNO ID: [id number] Author: Catherine Liu RDMS Service: ? Author Type: Medical Records Field Technician Type: Progress Notes Filed: 03/10/2023 11:09 AM [...] RDMS Angie March 10, 2023 11:09 AM [facility] 03-10-2023 History of Presen t [...] IV DATA: Not applicable SIGNED BY: Ira CisnerosGlownet Anette March 10, 2023 7:46 AM documented in this encounter [facility] 03-10-2023 History of Presen t illness Narrative [...] 2023 11:09 AM documented in this encounter [facility] 02-11-2023 Note HNO ID: [id number] Author: Tammie Guthrie APRN.ETHYL BLENDER Service: ? Author Type: Nurse Practitioner Type: [...] L2 SAB0 IAB0 Ectopic0 Multiple0 Live Births0 Tissue Technologist History LMP: 07/17/2022, Having periods Age at Menarche: Age at First : Age at Menopause: Tissue Technologist History Comments: Sexual Activity: Yes; Male Contraception: [...] external genitalia normal, normal Bartholin's glands, urethra, Rains's glands, no vulvar lesions, no cervical lesions, [...] notify patient of test results. Tammie Guthrie APRN.[facility] 02-11-2023 History of Presen t illness [...] L2 SAB0 IAB0 Ectopic0 Multiple0 Live Births0 Tissue Technologist History LMP: 07/17/2022, Having periods Age at Menarche: Age at First : Age at Menopause: Tissue Technologist History Comments: Sexual Activity: Yes; Male Contraception: [...] external genitalia normal, normal Bartholin's glands, urethra, Rains's glands, no vulvar lesions, no cervical lesions, [...] Tammie Guthrie APRN.CNP documented in this encounter [facility] documented in this [facility] Diagnosis Irregular menstrual cycle [facility] Diagnosis Encounter for screening mammogram for breast cancer documented in this [facility] Diagnostic Procedure Only (Routine) - Authorized Specialty Diagnoses / Procedures Referred By Contgary ingram Referred To Contact [facility] IMAG[facility] Diagnoses Irregular menstrual cycle Procedures US FEMALE PELVIS TRANSVAG US TRANSVAGINAL Tammie Guthrie APRN.CNP [address] [place] [address] [place] [id number] Referral ID Status Reason Start Date Expiration Date Visits Requested Visits Authorized [id number] Authorized Auto-Generat ed Referral 02/11/2023 03/12/2024 1 1 * Diagnostic Procedure Only (Routine) - Authorized Specialty Diagnoses / Procedures Referred By Contac t Referred To Contact [facility] Diagnoses Encounter for screening mammogram for breast cancer Procedures NATE SCREENING SCREENING MAMMOGRAPHY BI 2-VIEW BREAST INC CAD Tammie Guthrie APRN.CNP [address] [place] [address] [facility] [address] [place] [address] Referral ID Status Reason Start Date Expiration Date Visits Requested Visits Authorized [id number] Authorized Auto-Generat ed Referral 02/11/2023 03/12/2024 1 1 [facility] for referral (narrative)* Diagnostic Procedure Only (Routine) - Closed Specialty Diagnoses / Procedures Referred By Contac t Referred To Contact US IMAGING Diagnoses Irregular menstrual cycle Procedures US FEMALE PELVIS TRANSVAG US TRANSVAGINAL Tammie Guthrie APRN.ETHYL BLENDER [address] [place] [address] [place] [address] Referral ID Status Reason Start Date Expiration Date V isits Requested Visits Authorized [id number] Closed Auto-Generate d Referral 02/11/2023 03/12/2024 1 1 [facility] for referral (narrative)* Diagnostic Procedure Only (Routine) - Closed Specialty Diagnoses / Procedures Referred By Contac t Referred To Contact [facility] Diagnoses Encounter for screening mammogram for breast cancer Procedures NATE SCREENING SCREENING MAMMOGRAPHY BI 2-VIEW BREAST INC CAD [place]Tammie RN SECURITY.ETHYL BLENDER [address] [place] [address] [facility] [address] [place] [address] Referral ID Status Reason Start Date Expiration Date V isits Requested Visits Authorized [id number] Closed Auto-Generate d Referral 02/11/2023 03/12/2024 1 1 T [facility] for visit Narrative* Diagnostic Procedure Only (Routine) - Closed Specialty Diagnoses / Procedures Referred By Contac t Referred To Contact [facility] Diagnoses Encounter for screening mammogram for breast cancer Procedures NATE SCREENING SCREENING MAMMOGRAPHY BI 2-VIEW BREAST INC CAD Tammie Guthrie APRN.ETHYL BLENDER [address] [place] [address] [facility] [address] [place] [address] Referral ID Status Reason Start Date Expiration Date V isits Requested Visits Authorized [id number] Closed Auto-Generate d Referral 02/11/2023 03/12/2024 1 1 [facility] Summary Purpose Family History No Family History [...] or prosecute any alcohol or drug abuse patient.[facility] the event this information is protected by the Federal Confidentiality of Alcohol and Drug Abuse Patient Records regulations: The Federal rules restrict any use of the information to criminally investigate or prosecute any alcohol or drug abuse patient.[facility] the event this information is protected by the Federal Confidentiality of Alcohol and Drug Abuse Patient Records regulations: The Federal rules restrict any use of the information to criminally investigate or prosecute any alcohol or drug abuse patient.[facility] the event this information is protected by the Federal Confidentiality of Alcohol and Drug Abuse Patient Records regulations: The Federal rules restrict any use of the information to criminally investigate or prosecute any alcohol or drug abuse patient.[facility] the event this information is protected by the Federal Confidentiality of Alcohol and Drug Abuse Patient Records regulations: The Federal rules restrict any use of the information to criminally investigate or prosecute any alcohol or drug abuse patient.[facility] Reason for Visit (unrecogniz ed section and content) Reason Comments Radiology US Specialty Diagnoses / Procedures Referred By Contgary t Referred To Contact US IMAGING Diagnoses Irregular menstrual cycle Procedures US FEMALE PELVIS TRANSVAG US TRANSVAGINAL Tammie Guthrie APRN.ETHYL BLENDER [address] [place] [address] [place] [address] Referral ID Status Reason Start Date Expiration Date V isits Requested Visits Authorized [id number] Closed Auto-Generate d Referral 02/11/2023 03/12/2024 1 1 Care Teams (unrecognized sec tion and content) Devops Developer Relationship Specialty Start Date End Date Cintia Brewer MD PCP - General Family Medicine 03/28/14 Devops Developer Relationship Specialty Start Date End Date Cintia Brewer MD PCP - General Family Medicine 03/28/14 Devops Developer Relationship Specialty Start Date End Date Cintia Brewer MD PCP - General Family Medicine 03/28/14 Devops Developer Relationship Specialty Start Date End Date Cintia [...] BE BASED ON THE PRIMARY CLINICAL RECORDS. [employer] [facility]. provides no warranty or guarantee of the accuracy or completeness of information in this document.
== END | disposition home or self-care (01) ==
LOC: LAB 16:35
PROVIDERS: PCP Family Medicine; Referring Provider Surgery; Visit Provider Surgery
DX: E89.2 Postprocedural hypoparathyroidism (principal)
CPT/HCPCS: 36415; 82310; 83970

== ENCOUNTER → 2023-09-05 | Outpatient (CLI) | payer BC, SELFPAY ==
[2023-09-05 15:34] LABS: Calcium,Total 8.8 mg/dL (8.5-10.1)
[2023-09-05 15:40] LABS: PTHIN 126.1 pg/mL (18.4-80.1)
== END | disposition home or self-care (01) ==
LOC: LAB 14:03
PROVIDERS: PCP Family Medicine; Referring Provider Surgery; Visit Provider Surgery
DX: E89.2 Postprocedural hypoparathyroidism (principal)
CPT/HCPCS: 36415; 82310; 83970

== ENCOUNTER → 2023-12-23 | Outpatient (CLI) | payer BC, SELFPAY ==
[2023-12-23 12:35] LABS: Calcium,Total 9.6 mg/dL (8.5-10.1)
[2023-12-23 12:58] LABS: PTHIN 45.6 pg/mL (18.4-80.1)
[2023-12-25 12:09] LABS: Vitamin D 1,25-Dihydroxy 47.4 pg/mL (24.8-81.5)
== END | disposition home or self-care (01) ==
LOC: MTLAB 10:18
PROVIDERS: PCP Family Medicine; Referring Provider Surgery; Visit Provider Surgery
DX: E89.2 Postprocedural hypoparathyroidism (principal)
CPT/HCPCS: 36415; 82310; 82652; 83970

== ENCOUNTER → 2024-02-03 | Outpatient (CLI) | payer BC, SELFPAY ==
--- NOTE | 2024-02-03 16:10 | CT_ITS ---
STUDY: CT CHEST WITHOUT CONTRAST REASON FOR EXAM: Female, 58 years old. RLL lung nodule seen on 05/06/23 CT abdomen RADIATION DOSAGE (If Supplied By Facility): CTDIvol = ( 15.84 ) mGy, DLP = ( 586.48 ) mGycm TECHNIQUE: Transaxial imaging was performed without the administration of intravenous contrast material. Multiplanar coronal and sagittal images were reformatted. Individualized dose optimization techniques were used for this CT. COMPARISON: Comparison is made with prior CT scan of the abdomen dated May 06, 2023. FINDINGS: CHEST There is a 1.2 cm calcified granuloma in the peripheral aspect of the right lower lobe anteriorly. There is no demonstrated pleural abnormality. Normal heart and pericardium. No coronary calcification is seen. Normal mediastinum. Calcified right hilar lymph nodes. Normal unenhanced pulmonary arteries. Normal aorta arch and descending thoracic aorta. Normal osseous structures. Gallstones. CT/Chest without Contrast IMPRESSION: There is a granuloma in the peripheral aspect of the right lower lobe. Gallstones. Electronically Signed: Blu Woody MD at 15:55 EDT ,
== END | disposition home or self-care (01) ==
LOC: CT 16:02
PROVIDERS: PCP Family Medicine; Referring Provider Family Medicine; Visit Provider Family Medicine
DX: R91.1 Solitary pulmonary nodule (principal)
CPT/HCPCS: 71250

== ENCOUNTER 2024-02-17 18:00 | Outpatient (RCR) | payer BC, SELFPAY ==
--- NOTE | 2023-12-31 17:52 | HP.PTEVAL ---
Patient's Visit Information Visit Information Visit Information: ANAYA VAZQUEZ is a 58 year old F referred to Physical Therapy by Dr. Pierce Brewer MD with a diagnosis of Osteoporosis. Date of Evaluation: 12/31/23 Physical Therapist: Ena Sommers DPT Visit Plan Frequency: 1x/Week Duration: 4 Weeks Plan: Progress HEP with WB exercises for Osteoporosis and proprioceptive exercises HEP Given IE: SLS, Tandem Stance, Sit to Stand, HR/TR, Step Up, Hip Abd and extn, Lateral Plank, Plank, Bicep Curl while marching, hamstring stretch, lateral raise, Subjective Subjective: Patient reports that she had a bone scan and she it shows that she has osteopenia- she talked to her doctor and and he wants her to make sure she is doing the correct exercises. She also feels that she has gained weight since her thyroid surgery May 15. She walks on her TM 4 days a week- for a mile- she may do more in the winter. She has a pool and likes to garden. She does not have a lot of pain any more since the surgery. She is here just for a comprehensive home exercise program. Work: works from home- does not have a stand up desk. Elliptical, TM, 5# weights. PMHX/Meds: see list in chart. Objective Objective: Posture: fair throughout Gait: no deviation noted SLS: 10 sec with mod increase in sway ROM: WNL In all planes of the UE/LE and Lumbar/Cervical Spines Strength: Scap: fair, Core: fair UE: 4+/5 throughout Hip: 4+/5 Knee: 5/5 Ankle: 5/5 Flex: HS: mod Gastroc: mod Balance/Special Test Scores Lower Extremity Functional Score: 75 Goals Goal 1:: Patient will be I with HEP and progression Rehabilitation Potential Physical Therapy Diagnosis: Patient presents with decreased scap/core and LE/UE strength/stabilization, flex and muscular endurance Rehabilitation Potential: Good Anticipated Interventions Patient/Client Instruction: Educate patient on: Benefits of Fitness Program Therapeutic Exercise to Include: Strength training, Endurance training, Balance training, Agility training, Body mechanics, Postural training, Flexibilty training, Gait and locomotor training, Neuromotor development, Dynamic Lumbar Stabilization and Scapular Strength/Stabilization For the Purpose of:: To improve muscle performance and motor function Text: Thank you for the opportunity to evaluate your patient. For Medicare and Medicare HMO plans, please review the plan of care and approve it. It will need to be FAXED BACK to us at [phone] for Medicare purposes. For Medicare only, by signing this I certify the plan of care. Please let me know if there are questions or concerns regarding this plan of care. Physician Signature: Date:
--- NOTE | 2024-02-17 17:43 | HP.PT.NRP ---
Patient Information Patient Information: ANAYA VAZQUEZ was seen in my office for initial evaluation on 12/31/23. The following Plan of Care was established for this patient: POC Established Initial Frequency: 1x/Week Initial Duration: 4 Weeks Anticipated Interventions Patient/Client Instruction: Educate patient on: Benefits of Fitness Program Therapeutic Exercise to Include: Strength training, Endurance training, Balance training, Agility training, Body mechanics, Postural training, Flexibilty training, Gait and locomotor training, Neuromotor development, Dynamic Lumbar Stabilization and Scapular Strength/Stabilization For the Purpose of:: To improve muscle performance and motor function Last Seen Last Seen: This patient was last seen in our office . Pertinent comments regarding their Physical therapy will appear below: Indep with home exercise program for osteoporosis. At this point I will be discontinuing this patient from physical therapy. I would be happy to see this patient again in the future if found appropriate by the physician. Thank you! Ena Sommers, DPT Balance/Gait/Functional tests Balance/Special Test Scores Lower Extremity Functional Score: 75 Tug Test: <10 sec.=free mobile
--- NOTE | 2024-02-17 18:30 | HP.PTDCSUM ---
Discharge Summary D/C summary: It has been my pleasure to treat ANAYA VAZQUEZ referred by Dr. Pierce Brewer MD, with the diagnosis of Osteoporosis for a total of 3 visit(s). Discharge Date: 02/17/24 Please see the following information for a summary of their discharge status. Subjective Subjective: been doing exercises intermittently. no more bone density measurements, no pain. Feels like she got what she needed out of these exercises. Overall Improvement % Improvement: 0 Objective Objective/Function: walks I without gait deviations. LB AROM ext and flexion min limited and painfree. sit to stand I without UE. pt hesitant to commit to further sessions but also hesitant to recall HEp to me, Does not want to comomit to more sessions, has been busy and life has gotten in the way of current POC. Goals Goal 1:: Patient will be I with HEP and progression Goal Progress: Goal Met Plan Plan: d/c at patient request D/C Information d/c sentence: If there are questions or concerns regarding this patient's physical therapy, please feel free to call me at [phone]. Thank you for the referral of this patient. Sincerely, Pierce Malhotra, DPT, OCS, CSCS Balance/Gait/Functional tests Balance/Special Test Scores Lower Extremity Functional Score: 75 Tug Test: <10 sec.=free mobile Improvement % Improvement: 0
== END 2024-02-17 19:00 | disposition home or self-care (01) ==
LOC: PT 18:00
PROVIDERS: PCP Family Medicine; Referring Provider Family Medicine; Visit Provider Family Medicine
DX: M81.0 Age-related osteoporosis without current pathological fracture (principal); R63.5 Abnormal weight gain
CPT/HCPCS: 97110; 97162; 97530

== ENCOUNTER → 2025-04-12 | Outpatient (CLI) | payer BC, SELFPAY ==
[2025-04-12 10:15] LABS: PTHIN 33 pg/mL (11-61)
[2025-04-12 10:29] LABS: AST(SGOT) 18 U/L (<=31); Alanine Aminotransfer ALT/SGPT 18 U/L (<=34); Albumin, Serum 4.6 g/dL (3.5-5.0); Alkaline Phosphatase 94 U/L (35-104); Anion Gap 11 (5-15); BUN 12 mg/dL (4-19); BUN/Creat Ratio 13.0 RATIO (10-20); Calcium,Total 9.9 mg/dL (7.6-11.0); Carbon Dioxide 26.4 mmol/L (21.0-32.0); Chloride 102 mmol/L (98-108); Cholesterol 240 mg/dL (<=200); Globulin 3.0 g/dL (2.2-4.2); Glucose 115 mg/dL (70-99); Low Density Lipoprotein Calc. 152 mg/dL; Potassium 4.0 mmol/L (3.3-5.1); Triglycerides 262 mg/dL; Very Low Density Lipoprotein 52 mg/dL (5-40); Vitamin D,25 Hydroxy 36.9 ng/mL (30-100); cholesterol:hdl ratio screen 6.12
== END | disposition home or self-care (01) ==
LOC: MTLAB 08:49
PROVIDERS: PCP Family Medicine; Referring Provider Family Medicine; Visit Provider Family Medicine
DX: M85.80 Other specified disorders of bone density and structure, unspecified site (principal); E21.3 Hyperparathyroidism, unspecified; E66.811 Obesity, class 1
CPT/HCPCS: 36415; 80053; 80061; 82306; 83036; 83970; 84443